=== PATIENT | male | born 1950 | race Caucasian/White ===

== ENCOUNTER 2019-08-18 08:05 | Inpatient (IN) ==
[2019-08-18] MEDS ORDERED: HYDROmorphone INJ 0.5 MG/0.5 ML SYR IV STA (08:35)
--- NOTE | 2019-08-18 08:44 | Emergency Department Note ---
ED Visit Note This patient was seen in concert with Dr. Neal. We discussed and agreed upon the history, physical, assessment and plan. . Resident Activity Tracking Resident Involvement: Resident Care Provided Care Provided: Adult ED
[2019-08-18 09:12] LABS: Mean Corpuscular Hgb Conc 34.2 g/dL (32-36); Mean Corpuscular Volume 90.7 fL (80-100); Mean Platelet Volume 8.9 fL (7.4-10.4); Platelet Count 223 K/uL (130-400); RDW Coefficient of Variation 12.8 % (11.5-14.5); RDW Standard Deviation 42.7 fL (36.4-46.3); Red Blood Count 4.19 M/uL (4.7-6.1); White Blood Count 7.12 K/uL (4.8-10.8)
[2019-08-18 09:34] LABS: Basophils # (auto) 0.02 K/uL (0-0.2); Basophils % (auto) 0.3 %; Eosinophils # (auto) 0.03 K/uL (0-0.5); Eosinophils % (auto) 0.4 %; Immature Granulocytes # (auto) 0.21 K/uL (0.00-0.02); Immature Granulocytes % (auto) 2.9 %; Lymphocytes # (auto) 0.99 K/uL (1.2-3.4); Lymphocytes % (auto) 13.9 %; Monocytes # (auto) 0.94 K/uL (0.11-0.59); Monocytes % (auto) 13.2 %; Neutrophils # (auto) 4.93 K/uL (1.4-6.5); Neutrophils % (auto) 69.3 %; Toxic Granulation 3+
[2019-08-18 09:36] LABS: Albumin Level 2.8 gm/dl (3.4-5.0); BUN Creatinine Ratio 20.3 (10-20); Creatinine Clr Calc Pharmacy 89.1 ml/min; Est GFR (African American) 102.1; Est GFR (Non-African American) 88.1
[2019-08-18 09:38] LABS: Albumin Globulin Ratio 0.7 (0.9-2); Bilirubin,Total 0.5 mg/dl (0.2-1); Globulin 3.9 gm/dl (2.5-4.0); Total Protein 6.7 gm/dl (6.4-8.2)
[2019-08-18] MEDS ORDERED: IOVERSOL 100ml IV PRN (10:06)
--- NOTE | 2019-08-18 10:16 | CT Scan Report ---
CT abd pelvis IV con only CLINICAL HISTORY: abdominal pain COMPARISON STUDY: None. TECHNIQUE: The patient was scanned in a dynamic helical fashion during intravenous administration of 93 cc of Optiray 320. A dose lowering technique was utilized adhering to the principles of ALARA. CT DOSE: 1051.63 mGycm FINDINGS: Lower chest: There is respiratory motion artifact. There are mild dependent atelectatic changes. Liver: There is a 15 mm left lobe hepatic hypodensity, likely representing a cyst. There is trace per ihepatic fluid. Gallbladder: There is a calcified gallstone. The gallbladder is distended with equivocal increased myron jace pressure. Clinical correlation regards to acute cholecystitis is recommended. Spleen: Normal in size and attenuation. Pancreas: Unremarkable. Adrenal glands: Unremarkable. Kidneys: There is a 23 mm left renal cortical cyst. There is no hydronephrosis. Bowel: There are no transition zones indicate bowel obstruction. The appendix appears normal. There i s no evidence of acute diverticulitis. Borderline colonic wall thickening the transverse colon likely represents a nondistended segment Peritoneum: There is trace fluid within the abdomen. Vasculature: The abdominal aorta is normal in course and caliber. Adenopathy: None. Pelvic viscera: The bladder, and pelvic viscera are unremarkable. Skeletal structures: No destructive osseous lesions are seen. IMPRESSION: 1. No evidence of bowel obstruction. No evidence of free air. 2. Cholelithiasis with trace pericholecystic fluid and equivocal increased gallbladder luminal pressu re. Clinical correlation in regards to acute cholecystitis is recommended. If deemed clinically appro priate, a nuclear medicine hepatic biliary study could be obtained in follow-up 3. Trace perihepatic fluid 4. Normal appendix. No evidence of acute diverticulitis. ACT 112: Negative or not required by law. Electronically signed by: Ambrosio Mckinney M.D. 08/18/2019 10:15 AM
[2019-08-18] MEDS ORDERED: cefTRIAXone SODIUM 2,000 MG/70 ML BAG IV STA (10:20)
[2019-08-18 10:43] LABS: Appearance Urine Clear (Clear); Bilirubin Urine Negative (Negative); Blood Urine Negative (Negative); Color Urine Yellow; Glucose Urine UA Negative (Negative); Ketones Urine Negative (Negative); Leukocyte Esterase Urine Negative (Negative); Nitrite Urine Negative (Negative); Protein Urine Negative (Negative); Specific Gravity Urine 1.035 (1.000-1.030); Urobilinogen Urine Negative (Negative)
--- NOTE | 2019-08-18 11:08 | History & Physical Report ---
Date of Service August 18, 2019 Assessment & Plan (1) Cholelithiasis: rule out Cholecystitis -This is a 69 year old male with right upper quadrant abdominal pain that started around 11PM on 08/17/2019. He reported a dinner meal of tacos. Patient denies vomiting or changes in bowel movements or fevers. He has history of myocardial infraction in 2014 and has been on dual antiplatelets or aspirin daily and plavix daily since that time. He denies chest pain or shortness of breath, no dizziness or lightheadedness. On ED presentation on 08/18/2019, his CT abdomen imaging "Cholelithiasis with trace pericholecystic fluid and equivocal increased gallbladder luminal pressure. Clinical correlation in regards to acute cholecystitis is recommended. If deemed clinically appropriate, a nuclear medicine hepatic biliary study could be obtained in follow-up" -ED provider reports that they discussed with general surgery who agreed with radiology impression to get HIDA scan in case of acute cholecystitis . patient started on ceftriaxone 2000 grams empirically by ED provider in case of acute cholecystitis -Family history of mother with gallbladder removed and father with diabetes -keep NPO for now, give prn pain medications and prn antimetics -get blood cultures and follow up HIDA scan History of myocardial infarction in the past -He has history of myocardial infraction in 2014 and has been on dual antiplatelets or aspirin daily and plavix daily since that time -he took morning medications prior to arriving to ED, hold the aspirin and plavix and statin and furosemide and lisinopril for now -continue home dose metoprolol GERD (gastroespohageal reflux disease) -continue home dose pantoprazole DVT prophylaxis: SCDs for now Full Code Status [id number] History of Present Illness -This is a 69 year old male with right upper quadrant abdominal pain that started around 11PM on 08/17/2019. He reported a dinner meal of tacos. Patient denies vomiting or changes in bowel movements or fevers. He has history of myocardial infraction in 2014 and has been on dual antiplatelets or aspirin daily and plavix daily since that time. He denies chest pain or shortness of breath, no dizziness or lightheadedness. On ED presentation on 08/18/2019, his CT abdomen imaging "Cholelithiasis with trace pericholecystic fluid and equivocal increased gallbladder luminal pressure. Clinical correlation in regards to acute cholecystitis is recommended. If deemed clinically appropriate, a nuclear medicine hepatic biliary study could be obtained in follow-up" -ED provider reports that they discussed with general surgery who agreed with radiology impression to get HIDA scan in case of acute cholecystitis . patient started on ceftriaxone 2000 grams empirically by ED provider in case of acute cholecystitis -Family history of mother with gallbladder removed and father with diabetes -Patient denies any known allergies to foods or medications Primary Care Provider: Desean Leyva MD Allergies Allergy/AdvReac Type Severity Reaction Status Date / Time No Known Allergies Allergy Unverified 07/15/19 13:47 Home Medications Home Medications Medication Instructions Recorded Confirmed Type atorvastatin 80 mg tablet 80 mg PO DAILY #30 tab 10/05/18 08/18/19 History pantoprazole 40 mg tablet,delayed 40 mg PO DAILY #90 tab 10/05/18 08/18/19 History release nitroglycerin 0.4 mg sublingual 0.4 mg SL Q5M PRN #25 tab 11/09/18 08/18/19 Rx tablet clopidogrel 75 mg tablet 75 mg PO DAILY #90 tab 01/01/19 08/18/19 Rx furosemide 20 mg tablet 20 mg PO DAILY #90 tab 01/27/19 08/18/19 Rx lisinopril 10 mg tablet 10 mg PO DAILY #90 tab 05/14/19 08/18/19 Rx metoprolol succinate 50 mg 50 mg PO DAILY #30 tab 05/14/19 08/18/19 Rx tablet,extended release 24 hr aspirin [Aspirin Low Dose] 81 mg PO DAILY 08/18/19 08/18/19 History Past Med/Surg History Medical History (Updated 08/18/19 @ 11:13 by Manolo Newman MD) Atrial fibrillation AV block, 3rd degree CAD (coronary artery disease) Cholelithiasis Dyslipidemia Heart failure Hepatic steatosis Hypertension Hyponatremia Inferior myocardial infarction Ischemic cardiomyopathy Other secondary thrombocytopenia Pericarditis Presence of drug-eluting stent in right coronary artery Shock liver Social History marital status: Current Living Situation: Spouse current occupational status: retired Feels Safe at Home: Yes Smoking Status: Never smoker Review of Systems Review of Systems: All systems reviewed & are unremarkable except as noted in HPI & below Physical Exam Constitutional: + obese Eyes: PERRL, conjunctivae normal, anicteric sclerae EOM intact bilaterally ENMT: external ear and nose normal, oropharynx normal Neck: trachea midline, no thyromegaly normal visual inspection Respiratory: normal respiratory effort, lungs clear to auscultation Cardiovascular: Rate/Rhythm: regular rate Gastrointestinal (Abdomen): belly with some tenderness on palpation of right upper quadrant Musculoskeletal: Head/Neck/Chest: normocephalic and head atraumatic Neurologic: PERRL, EOMI, accommodation nl, no face palsy, no dysarthria CN's II-XI intact bilaterally Psychiatric: A+Ox3, euthymic affect Results & Data Results & Data ([facility]) Vital Signs (Past 12 Hours) Vital Signs Temp Pulse Resp BP Pulse Ox 08/18/19 10:31 86 20 157/87 H 99 08/18/19 09:31 78 21 96 08/18/19 09:30 77 19 141/87 H 95 08/18/19 09:04 37.0 C 08/18/19 09:01 92 H 12 94 08/18/19 09:00 87 12 139/85 94 08/18/19 08:57 86 17 145/83 H 96 08/18/19 08:56 96 08/18/19 08:55 89 16 08/18/19 08:06 87 16 163/86 H 97
[2019-08-18] MEDS ORDERED: ACETAMINOPHEN 325 MG TAB PO PRN (11:22)
[2019-08-18] MEDS ORDERED: OXYCODONE HCL IR 5 MG TAB (IMMEDIATE RELEASE) PO PRN (11:22)
[2019-08-18] MEDS ORDERED: ONDANSETRON INJ 2 MG/ML 2 ML VIAL IV PRN (11:22)
[2019-08-18] MEDS ORDERED: HYDROmorphone INJ 0.5 MG/0.5 ML SYR IV PRN (11:22)
--- NOTE | 2019-08-18 15:28 | Surgery Consultation ---
Date of Consultation August 18, 2019 Assessment & Plan (1) Cholelithiasis: 69 year-old male with history of CAD with myocardial infarction in 2014 with 2 stent placed on aspirin and plavix who presented to ED this morning with complaint of RUQ abdominal pain that began last evening around 11 pm after eating bowl of ice cream. CT scan showing cholelithiasis with mild pericholecystic fluid and intraluminal increased pressure, equivocal for acute cholecystitis. no leukocytosis. t. bili/lfts/lipase wnl. afebrile. Plan: Recommend obtaining HIDA scan to rule out acute cholecystitis/cystic duct obstruction. His last dose of Plavix was this morning. If HIDA scan positive for acute cholecystitis/cystic duct obstruction will likely require cholecystectomy as inpatient. If no obstruction, may be able to wait for outpatient cholecystectomy so that we can hold Plavix for appropriate amount of days to reduce risk of bleeding. Recommend iV Abx in case of acute cholecystitis keep npo await hida results continue medical management Discussed with Dr. Byrne who is to evaluate patient later today. History of Present Illness Reason for Consultation: Gallstones vs acute cholecystitis Requesting Physician: Manolo Newman MD Attending Physician: Manolo Newman MD History of Present Illness 69 year-old male with history of CAD with myocardial infarction in 2014 with 2 stent placed on aspirin and plavix who presented to ED this morning with complaint of RUQ abdominal pain that began last evening around 11 pm after eating bowl of ice cream. Had taco for dinner without any pain. Denies of any fever, chills, nausea, vomiting, current diarrhea, blood in stools, or black /tarry stools, difficulty urinating or burning on urination. Pain located in RUQ , described it as dull aching pain. Never had this type of pain before. Pain persisted throughout night without relieve. Not similar to chest pain during his [place]. Takes daily Protonix but denies of significant heartburn/reflux with this onset of pain. No prior abdominal surgeries. Last took plavix this am. Never had outpatient work-up for gallbladder issues. Er work-up included labs which showed no leukocytosis, t.bili and lfts essential wnl. lipase wnl. CT scan of abdomen and pelvis with IV contrast only showed distended gallbladder with calcified stone and mild pericholecystic fluid with equivocal interluminal increased pressure. Bhanu states his pain was improved after pain medication in ED but is slowly increasing as time is going on with most of his pain in the right upper abdomen. Allergies Allergy/AdvReac Type Severity Reaction Status Date / Time No Known Allergies Allergy Unverified 07/15/19 13:47 Home Medications Home Medications Medication Instructions Recorded Confirmed Type atorvastatin 80 mg tablet 80 mg PO DAILY #30 tab 10/05/18 08/18/19 History pantoprazole 40 mg tablet,delayed 40 mg PO DAILY #90 tab 10/05/18 08/18/19 History release nitroglycerin 0.4 mg sublingual 0.4 mg SL Q5M PRN #25 tab 11/09/18 08/18/19 Rx tablet clopidogrel 75 mg tablet 75 mg PO DAILY #90 tab 01/01/19 08/18/19 Rx furosemide 20 mg tablet 20 mg PO DAILY #90 tab 01/27/19 08/18/19 Rx lisinopril 10 mg tablet 10 mg PO DAILY #90 tab 05/14/19 08/18/19 Rx metoprolol succinate 50 mg 50 mg PO DAILY #30 tab 05/14/19 08/18/19 Rx tablet,extended release 24 hr aspirin [Aspirin Low Dose] 81 mg PO DAILY 08/18/19 08/18/19 History Patient History Medical History Atrial fibrillation AV block, 3rd degree CAD (coronary artery disease) Cholelithiasis Dyslipidemia Heart failure Hepatic steatosis Hypertension Hyponatremia Inferior myocardial infarction Ischemic cardiomyopathy Other secondary thrombocytopenia Pericarditis Presence of drug-eluting stent in right coronary artery Shock liver Family History Father Stroke Mother Stroke Sister Congenital heart disease Social History Preferred Language: Malay Communication Ability: Effective 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 Beliefs That Will Affect Care: None marital status: Current Living Situation: Spouse current occupational status: retired Other Information That Helps Us Care for You: No Feels Safe at Home: Yes Safety Concerns: Feels Safe At This Time Smoking Status: Never smoker Hx Alcohol Use: No Hx Substance Use: No Review of Systems Review of Systems: All systems reviewed & are unremarkable except as noted in HPI & below Physical Exam Constitutional: WD/WN, vitals as above no acute distress and not ill appearing Respiratory: normal respiratory effort, lungs clear to auscultation Cardiovascular: RRR, no murmur, no edema Gastrointestinal (Abdomen): Inspection/Auscultation: abdomen normal to inspection and normal bowel sounds; abdomen not distended Percussion/Palpation: + abdomen tender (RUQ, positive Watson's sign), + guarding (deep palpation of RUQ) and abdomen soft; abdomen not rigid Skin: no rashes, warm and dry no jaundice Psychiatric: A+Ox3, euthymic affect Results & Data Vital Signs (Past 12 Hours) Vital Signs Temp Pulse Pulse Resp BP BP Pulse Ox 08/18/19 15:11 37.4 C 85 16 135/73 92 08/18/19 13:07 36.8 C 93 H 18 156/85 H 96 08/18/19 12:46 90 16 149/88 H 08/18/19 12:44 91 H 29 H 149/88 H 08/18/19 11:30 73 20 156/91 H 98 08/18/19 11:00 87 23 146/84 H 99 08/18/19 10:31 86 20 157/87 H 99 08/18/19 09:31 78 21 96 08/18/19 09:30 77 19 141/87 H 95 08/18/19 09:04 37.0 C 08/18/19 09:01 92 H 12 94 08/18/19 09:00 87 12 139/85 94 08/18/19 08:57 86 17 145/83 H 96 08/18/19 08:56 96 08/18/19 08:55 89 16 08/18/19 08:06 87 16 163/86 H 97 Laboratory Results 08/18/19 08/18/19 08/18/19 Range/Units 10:36 08:56 08:56 WBC (4.8-10.8) K/uL RBC (4.7-6.1) M/uL Hgb (14.0-18.0) g/dL Hct (42-52) % MCV (80-100) fL MCH (25-34) pg MCHC (32-36) g/dL RDW Std Deviation (36.4-46.3) fL RDW Coeff of Kemi (11.5-14.5) % Plt Count (130-400) K/uL MPV (7.4-10.4) fL Immature Gran % (Auto) % Neut % (Auto) % Lymph % (Auto) % [place] % (Auto) % Eos % (Auto) % Baso % (Auto) % Neut # (Auto) (1.4-6.5) K/uL Lymph # (Auto) (1.2-3.4) K/uL [place] # (Auto) (0.11-0.59) K/uL Eos # (Auto) (0-0.5) K/uL Baso # (Auto) (0-0.2) K/uL Immature Gran # (Auto) (0.00-0.02) K/uL Toxic Granulation Sodium 133 L (136-145) mmol/L Potassium 4.0 (3.5-5.1) mmol/L Chloride 102 (98-107) mmol/L Carbon Dioxide 26 (21-32) mmol/L Anion Gap 5.0 (3-11) BUN 18 (7-18) mg/dl Creatinine 0.87 (0.6-1.4) mg/dl Est Cr Clr Drug Dosing 89.1 ml/min Est GFR ( Amer) 102.1 Est GFR (Non-Af Amer) 88.1 BUN/Creatinine Ratio 20.3 H (10-20) Glucose 150 H (70-99) mg/dl Calcium 9.0 (8.5-10.1) mg/dl Total Bilirubin 0.5 (0.2-1) mg/dl AST 43 H (15-37) U/L ALT 61 (12-78) U/L Alkaline Phosphatase 115 (45-117) U/L Total Protein 6.7 (6.4-8.2) gm/dl Albumin 2.8 L (3.4-5.0) gm/dl Globulin 3.9 (2.5-4.0) gm/dl Albumin/Globulin Ratio 0.7 L (0.9-2) Lipase 216 (73-393) U/L Procalcitonin 0.09 (0-0.5) ng/ml Urine Color Yellow Urine Appearance Clear (Clear) Urine pH 5.0 (4.5-7.5) Ur Specific [place] 1.035 H (1.000-1.030) Urine Protein Negative (Negative) Urine Glucose (UA) Negative (Negative) Urine Ketones Negative (Negative) Urine Blood Negative (Negative) Urine Nitrite Negative (Negative) Urine Bilirubin Negative (Negative) Urine Urobilinogen Negative (Negative) Ur Leukocyte Esterase Negative (Negative) 08/18/19 Range/Units 08:56 WBC 7.12 (4.8-10.8) K/uL RBC 4.19 L (4.7-6.1) M/uL Hgb 13.0 L (14.0-18.0) g/dL Hct 38.0 L (42-52) % MCV 90.7 (80-100) fL MCH 31.0 (25-34) pg MCHC 34.2 (32-36) g/dL RDW Std Deviation 42.7 (36.4-46.3) fL RDW Coeff of Kemi 12.8 (11.5-14.5) % Plt Count 223 (130-400) K/uL MPV 8.9 (7.4-10.4) fL Immature Gran % (Auto) 2.9 % Neut % (Auto) 69.3 % Lymph % (Auto) 13.9 % [place] % (Auto) 13.2 % Eos % (Auto) 0.4 % Baso % (Auto) 0.3 % Neut # (Auto) 4.93 (1.4-6.5) K/uL Lymph # (Auto) 0.99 L (1.2-3.4) K/uL [place] # (Auto) 0.94 H (0.11-0.59) K/uL Eos # (Auto) 0.03 (0-0.5) K/uL Baso # (Auto) 0.02 (0-0.2) K/uL Immature Gran # (Auto) 0.21 H (0.00-0.02) K/uL Toxic Granulation 3+ Sodium (136-145) mmol/L Potassium (3.5-5.1) mmol/L Chloride (98-107) mmol/L Carbon Dioxide (21-32) mmol/L Anion Gap (3-11) BUN (7-18) mg/dl Creatinine (0.6-1.4) mg/dl Est Cr Clr Drug Dosing ml/min Est GFR ( Amer) Est GFR (Non-Af Amer) BUN/Creatinine Ratio (10-20) Glucose (70-99) mg/dl Calcium (8.5-10.1) mg/dl Total Bilirubin (0.2-1) mg/dl AST (15-37) U/L ALT (12-78) U/L Alkaline Phosphatase (45-117) U/L Total Protein (6.4-8.2) gm/dl Albumin (3.4-5.0) gm/dl Globulin (2.5-4.0) gm/dl Albumin/Globulin Ratio (0.9-2) Lipase (73-393) U/L Procalcitonin (0-0.5) ng/ml Urine Color Urine Appearance (Clear) Urine pH (4.5-7.5) Ur Specific [place] (1.000-1.030) Urine Protein (Negative) Urine Glucose (UA) (Negative) Urine Ketones (Negative) Urine Blood (Negative) Urine Nitrite (Negative) Urine Bilirubin (Negative) Urine Urobilinogen (Negative) Ur Leukocyte Esterase (Negative) Diagnostic Findings CT abd pelvis IV con only CLINICAL HISTORY: abdominal pain COMPARISON STUDY: None. TECHNIQUE: The patient was scanned in a dynamic helical fashion during intravenous administration of 93 cc of Optiray 320. A dose lowering technique was utilized adhering to the principles of ALARA. CT DOSE: 1051.63 mGycm FINDINGS: Lower chest: There is respiratory motion artifact. There are mild dependent atelectatic changes. Liver: There is a 15 mm left lobe hepatic hypodensity, likely representing a cyst. There is trace perihepatic fluid. Gallbladder: There is a calcified gallstone. The gallbladder is distended with equivocal increased luminal pressure. Clinical correlation regards to acute cholecystitis is recommended. Spleen: Normal in size and attenuation. Pancreas: Unremarkable. Adrenal glands: Unremarkable. Kidneys: There is a 23 mm left renal cortical cyst. There is no hydronephrosis. Bowel: There are no transition zones indicate bowel obstruction. The appendix appears normal. There is no evidence of acute diverticulitis. Borderline colonic wall thickening the transverse colon likely represents a nondistended segment Peritoneum: There is trace fluid within the abdomen. Vasculature: The abdominal aorta is normal in course and caliber. Adenopathy: None. Pelvic viscera: The bladder, and pelvic viscera are unremarkable. Skeletal structures: No destructive osseous lesions are seen. IMPRESSION: 1. No evidence of bowel obstruction. No evidence of free air. 2. Cholelithiasis with trace pericholecystic fluid and equivocal increased gallbladder luminal pressure. Clinical correlation in regards to acute cholecystitis is recommended. If deemed clinically appropriate, a nuclear medicine hepatic biliary study could be obtained in follow-up 3. Trace perihepatic fluid 4. Normal appendix. No evidence of acute diverticulitis.
--- NOTE | 2019-08-18 16:38 | Emergency Department Note ---
History of Present Illness General Chief complaint: Abdominal Pain Stated complaint: ABD PAIN/DISCOMFORT Time Seen by Provider: 08/18/19 08:11 Source: patient and RN notes reviewed Mode of arrival: ambulatory Limitations: no limitations History of Present Illness Provider complaint: Epigastric abdominal pain Maximum Pain Intensity: 5 This patient is a 69-year-old male who presents emergency department with 1 weeks worth of epigastric abdominal pain. Patient has a history of HI but states this feels much differently. He has felt feverish over the last several days, he has been nauseated but denies vomiting. Patient did have some diarrhea earlier in the week. Patient denies any blood in his stools. He denies any coughing or shortness of breath. Home Medications Home Medications Medication Instructions Recorded Confirmed Type atorvastatin 80 mg tablet 80 mg PO DAILY #30 tab 10/05/18 08/18/19 History pantoprazole 40 mg tablet,delayed 40 mg PO DAILY #90 tab 10/05/18 08/18/19 History release nitroglycerin 0.4 mg sublingual 0.4 mg SL Q5M PRN #25 tab 11/09/18 08/18/19 Rx tablet clopidogrel 75 mg tablet 75 mg PO DAILY #90 tab 01/01/19 08/18/19 Rx furosemide 20 mg tablet 20 mg PO DAILY #90 tab 01/27/19 08/18/19 Rx lisinopril 10 mg tablet 10 mg PO DAILY #90 tab 05/14/19 08/18/19 Rx metoprolol succinate 50 mg 50 mg PO DAILY #30 tab 05/14/19 08/18/19 Rx tablet,extended release 24 hr aspirin [Aspirin Low Dose] 81 mg PO DAILY 08/18/19 08/18/19 History Allergies Allergy/AdvReac Type Severity Reaction Status Date / Time No Known Allergies Allergy Unverified 07/15/19 13:47 Past Med/Surg History Medical History Atrial fibrillation AV block, 3rd degree CAD (coronary artery disease) Cholelithiasis Dyslipidemia Heart failure Hepatic steatosis Hypertension Hyponatremia Inferior myocardial infarction Ischemic cardiomyopathy Other secondary thrombocytopenia Pericarditis Presence of drug-eluting stent in right coronary artery Shock liver Family History Father Stroke Mother Stroke Sister Congenital heart disease Social History Preferred Language: Icelandic Communication Ability: Effective Complaint Investigations Officer Required: No Beliefs That Will Affect Care: None marital status: Current Living Situation: Spouse current occupational status: retired Other Information That Helps Us Care for You: No Feels Safe at Home: Yes Safety Concerns: Feels Safe At This Time Smoking Status: Never smoker Hx Alcohol Use: No Hx Substance Use: No Review of Systems See HPI for pertinent positives & negatives. and A total of 10 systems reviewed and were otherwise negative Physical Exam Vital Signs Vital Signs - 24 hr 08/18/19 08:06 08/18/19 08:55 08/18/19 08:56 Temperature Temperature Source Pulse Rate 87 89 Pulse Rate from SpO2 Sensor Respiratory Rate 16 16 Blood Pressure 163/86 H Blood Pressure Mean 111 Pulse Oximetry 97 96 Oxygen Delivery Method Room Air Room Air Sepsis Recent Fever Within 48 Hours No Sepsis New/Unexplained Change in Mental Status No Sepsis Action Taken by Nursing No Action Required 08/18/19 08:57 08/18/19 09:00 08/18/19 09:01 Temperature Temperature Source Pulse Rate 86 87 92 H Pulse Rate from SpO2 Sensor 85 82 90 Respiratory Rate 17 12 12 Blood Pressure 145/83 H 139/85 Blood Pressure Mean 102 101 Pulse Oximetry 96 94 94 Oxygen Delivery Method Room Air Room Air Room Air Sepsis Recent Fever Within 48 Hours Sepsis New/Unexplained Change in Mental Status Sepsis Action Taken by Nursing 08/18/19 09:04 08/18/19 09:30 08/18/19 09:31 Temperature 37.0 C Temperature Source Oral Pulse Rate 77 78 Pulse Rate from SpO2 Sensor 78 81 Respiratory Rate 19 21 Blood Pressure 141/87 H Blood Pressure Mean 97 Pulse Oximetry 95 96 Oxygen Delivery Method Room Air Room Air Sepsis Recent Fever Within 48 Hours Sepsis New/Unexplained Change in Mental Status Sepsis Action Taken by Nursing 08/18/19 10:31 08/18/19 11:00 Temperature Temperature Source Pulse Rate 86 87 Pulse Rate from SpO2 Sensor 84 92 H Respiratory Rate 20 23 Blood Pressure 157/87 H 146/84 H Blood Pressure Mean 99 102 Pulse Oximetry 99 99 Oxygen Delivery Method Room Air Sepsis Recent Fever Within 48 Hours Sepsis New/Unexplained Change in Mental Status Sepsis Action Taken by Nursing Vital signs reviewed. General: Well-appearing 69-year-old male, in no significant distress. HEENT: No scleral icterus, PERRLA, neck supple. Atraumatic. Cardiovascular: Regular rate and rhythm, no extra sounds. Pulmonary: Clear to auscultation bilaterally, normal work of breathing. Abdomen: Soft, mild tenderness to palpation of the right upper quadrant and epigastric region, nondistended, positive bowel sounds. Musculoskeletal: Atraumatic, no peripheral edema. Neurologic: Patient awake alert and oriented x 3 Skin: Warm, dry, no rash Course Administered Medications Hydromorphone HCl (Dilaudid) 0.5 mg IV Q6H PRN PRN Reason: Severe Pain Stop: 09/01/19 11:21 Last Admin: 08/18/19 16:18 Dose: 0.5 mg Documented by: [id number] Ceftriaxone Sodium 2,000 mg/ (Dextrose) 70 mls @ 100 mls/hr IV DAILY TOM; Protocol Stop: 08/29/19 08:59 Last Infusion: 08/19/19 10:40 Dose: 0 mls/hr Documented by: [id number] Admin: 08/19/19 09:58 Dose: 100 mls/hr Documented by: [id number] Ioversol (Optiray 320 100ml) 93 ml IV ONCE PRN PRN Reason: Interaction Checking Stop: 08/22/19 10:05 Last Admin: 08/18/19 10:07 Dose: 93 ml Documented by: [id number] Metoprolol Succinate (Toprol Xl) 50 mg PO DAILY TOM Stop: 09/18/19 08:59 Last Admin: 08/19/19 08:54 Dose: Not Given Documented by: [id number] Pantoprazole Sodium (Protonix) 40 mg PO DAILY TOM Stop: 09/18/19 08:59 Last Admin: 08/19/19 08:54 Dose: Not Given Documented by: [id number] Discontinued Medications Hydromorphone HCl (Dilaudid) 0.5 mg IV NOW STA Stop: 08/18/19 08:36 Last Admin: 08/18/19 09:01 Dose: 0.5 mg Documented by: [id number] Ceftriaxone Sodium (Rocephin) 2,000 mg in 70 mls @ 140 mls/hr IV NOW STA Stop: 08/18/19 10:49 Last Infusion: 08/18/19 11:15 Dose: 0 mls/hr Documented by: [id number] Admin: 08/18/19 10:33 Dose: 140 mls/hr Documented by: [id number] Sincalide 1.88 mcg/ Sodium (Chloride) 101.88 mls @ 200 mls/hr IV NOW STA Stop: 08/19/19 09:00 Last Admin: 08/19/19 09:58 Dose: Not Given Documented by: [id number] Morphine Sulfate (Morphine Sulfate) Confirm Administered Dose 2 mg .ROUTE .STK- MED ONE Stop: 08/19/19 09:11 Last Admin: 08/19/19 09:16 Dose: 2 mg Documented by: [id number] Morphine Sulfate (Morphine Sulfate) 2 mg IV NOW STA Stop: 08/19/19 09:21 Last Admin: 08/19/19 09:21 Dose: Not Given Documented by: [id number] Medical Decision Making Differential Diagnosis Differential diagnosis: Etiologies such as biliary colic, cholecystitis, hepatitis, pancreatitis, cardiac disease, pancreatitis, gastritis, peptic ulcer disease, appendicitis, cystitis, diverticulitis, mesenteric ischemia, inflammatory bowel disease, ileus, bowel obstruction, testicular torsion, aortic pathology, shingles, as well as others were considered. Medical Records Attestation: I reviewed the patient's medical records. Home Medications Current Medication List: was personally reviewed by me Laboratory Data Attestation: I reviewed the patient's lab results. Result diagrams: 08/19/19 05:14 08/19/19 05:14 Lab Results 08/18/19 08/18/19 08/18/19 Range/Units 08:56 08:56 08:56 WBC 7.12 (4.8-10.8) K/uL RBC 4.19 L (4.7-6.1) M/uL Hgb 13.0 L (14.0-18.0) g/dL Hct 38.0 L (42-52) % MCV 90.7 (80-100) fL MCH 31.0 (25-34) pg MCHC 34.2 (32-36) g/dL RDW Std Deviation 42.7 (36.4-46.3) fL RDW Coeff of Kemi 12.8 (11.5-14.5) % Plt Count 223 (130-400) K/uL MPV 8.9 (7.4-10.4) fL Immature Gran % (Auto) 2.9 % Neut % (Auto) 69.3 % Lymph % (Auto) 13.9 % Bates % (Auto) 13.2 % Eos % (Auto) 0.4 % Baso % (Auto) 0.3 % Neut # (Auto) 4.93 (1.4-6.5) K/uL Lymph # (Auto) 0.99 L (1.2-3.4) K/uL Bates # (Auto) 0.94 H (0.11-0.59) K/uL Eos # (Auto) 0.03 (0-0.5) K/uL Baso # (Auto) 0.02 (0-0.2) K/uL Immature Gran # (Auto) 0.21 H (0.00-0.02) K/uL Toxic Granulation 3+ Sodium 133 L (136-145) mmol/L Potassium 4.0 (3.5-5.1) mmol/L Chloride 102 (98-107) mmol/L Carbon Dioxide 26 (21-32) mmol/L Anion Gap 5.0 (3-11) BUN 18 (7-18) mg/dl Creatinine 0.87 (0.6-1.4) mg/dl Est Cr Clr Drug Dosing 89.1 ml/min Est GFR ( Amer) 102.1 Est GFR (Non-Af Amer) 88.1 BUN/Creatinine Ratio 20.3 H (10-20) Glucose 150 H (70-99) mg/dl Calcium 9.0 (8.5-10.1) mg/dl Total Bilirubin 0.5 (0.2-1) mg/dl AST 43 H (15-37) U/L ALT 61 (12-78) U/L Alkaline Phosphatase 115 (45-117) U/L Total Protein 6.7 (6.4-8.2) gm/dl Albumin 2.8 L (3.4-5.0) gm/dl Globulin 3.9 (2.5-4.0) gm/dl Albumin/Globulin Ratio 0.7 L (0.9-2) Lipase 216 (73-393) U/L Procalcitonin 0.09 (0-0.5) ng/ml Urine Color Urine Appearance (Clear) Urine pH (4.5-7.5) Ur Specific [place] (1.000-1.030) Urine Protein (Negative) Urine Glucose (UA) (Negative) Urine Ketones (Negative) Urine Blood (Negative) Urine Nitrite (Negative) Urine Bilirubin (Negative) Urine Urobilinogen (Negative) Ur Leukocyte Esterase (Negative) 08/18/19 Range/Units 10:36 WBC (4.8-10.8) K/uL RBC (4.7-6.1) M/uL Hgb (14.0-18.0) g/dL Hct (42-52) % MCV (80-100) fL MCH (25-34) pg MCHC (32-36) g/dL RDW Std Deviation (36.4-46.3) fL RDW Coeff of Kemi (11.5-14.5) % Plt Count (130-400) K/uL MPV (7.4-10.4) fL Immature Gran % (Auto) % Neut % (Auto) % Lymph % (Auto) % Bates % (Auto) % Eos % (Auto) % Baso % (Auto) % Neut # (Auto) (1.4-6.5) K/uL Lymph # (Auto) (1.2-3.4) K/uL Bates # (Auto) (0.11-0.59) K/uL Eos # (Auto) (0-0.5) K/uL Baso # (Auto) (0-0.2) K/uL Immature Gran # (Auto) (0.00-0.02) K/uL Toxic Granulation Sodium (136-145) mmol/L Potassium (3.5-5.1) mmol/L Chloride (98-107) mmol/L Carbon Dioxide (21-32) mmol/L Anion Gap (3-11) BUN (7-18) mg/dl Creatinine (0.6-1.4) mg/dl Est Cr Clr Drug Dosing ml/min Est GFR ( Amer) Est GFR (Non-Af Amer) BUN/Creatinine Ratio (10-20) Glucose (70-99) mg/dl Calcium (8.5-10.1) mg/dl Total Bilirubin (0.2-1) mg/dl AST (15-37) U/L ALT (12-78) U/L Alkaline Phosphatase (45-117) U/L Total Protein (6.4-8.2) gm/dl Albumin (3.4-5.0) gm/dl Globulin (2.5-4.0) gm/dl Albumin/Globulin Ratio (0.9-2) Lipase (73-393) U/L Procalcitonin (0-0.5) ng/ml Urine Color Yellow Urine Appearance Clear (Clear) Urine pH 5.0 (4.5-7.5) Ur Specific [place] 1.035 H (1.000-1.030) Urine Protein Negative (Negative) Urine Glucose (UA) Negative (Negative) Urine Ketones Negative (Negative) Urine Blood Negative (Negative) Urine Nitrite Negative (Negative) Urine Bilirubin Negative (Negative) Urine Urobilinogen Negative (Negative) Ur Leukocyte Esterase Negative (Negative) Imaging Data Radiologist's Impression: CT abd pelvis IV con only CLINICAL HISTORY: abdominal pain COMPARISON STUDY: None. TECHNIQUE: The patient was scanned in a dynamic helical fashion during intravenous administration of 93 cc of Optiray 320. A dose lowering technique was utilized adhering to the principles of ALARA. CT DOSE: 1051.63 mGycm FINDINGS: Lower chest: There is respiratory motion artifact. There are mild dependent atelectatic changes. Liver: There is a 15 mm left lobe hepatic hypodensity, likely representing a cyst. There is trace perihepatic fluid. Gallbladder: There is a calcified gallstone. The gallbladder is distended with equivocal increased luminal pressure. Clinical correlation regards to acute cholecystitis is recommended. Spleen: Normal in size and attenuation. Pancreas: Unremarkable. Adrenal glands: Unremarkable. Kidneys: There is a 23 mm left renal cortical cyst. There is no hydronephrosis. Bowel: There are no transition zones indicate bowel obstruction. The appendix appears normal. There is no evidence of acute diverticulitis. Borderline colonic wall thickening the transverse colon likely represents a nondistended segment Peritoneum: There is trace fluid within the abdomen. Vasculature: The abdominal aorta is normal in course and caliber. Adenopathy: None. Pelvic viscera: The bladder, and pelvic viscera are unremarkable. Skeletal structures: No destructive osseous lesions are seen. IMPRESSION: 1. No evidence of bowel obstruction. No evidence of free air. 2. Cholelithiasis with trace pericholecystic fluid and equivocal increased gallbladder luminal pressure. Clinical correlation in regards to acute cholecystitis is recommended. If deemed clinically appropriate, a nuclear medicine hepatic biliary study could be obtained in follow-up 3. Trace perihepatic fluid 4. Normal appendix. No evidence of acute diverticulitis. ACT 112: Negative or not required by law. Electronically signed by: Ambrosio Mckinney M.D. 08/18/2019 10:15 AM Dictated: 08/18/19 1009 Transcribed: 08/18/19 1009 ECG Data Attestation: I personally reviewed and interpreted this ECG as follows: Indication: + abdominal pain Rate (beats per minute): 78 Rhythm: + atrial fibrillation ECG Intervals/blocks: + Normal QT-c ECG ST segments: + Nonspecific ST abnormalities ECG Findings: + Q waves (Inferior); no PACs and no PVCs Blood Pressure Blood Pressure Findings: Normal blood pressure Blood Pressure Disposition: did not require urgent referral MDM Narrative This patient was evaluated and appeared to be in no significant distress. IV access was obtained and laboratory work was drawn. Patient was medicated with IV Dilaudid and Zofran. IV hydration was initiated. An order for cardiac monitoring was placed and the patient was found to be in a rate controlled atrial fibrillation. Patient is noted not to be anticoagulated. This may be a new finding. CT scan of the abdomen pelvis was ordered and reveals evidence of pericholecystic fluid there is concern for acute cholecystitis. Patient is noted to have a normal WBC and liver enzymes. Patient was given 2 g of IV Rocephin. Case was discussed with general surgery who has requested medical admission and HIDA scan. Patient was made aware of the plan[facility] will evaluate the patient for further management. Impression & Plan Cholecystitis Discharge Plan Visit Data *Final* Discharge Date/Time: 08/18/19 12:46 Chief Complaint: Abdominal Pain Stated Complaint: ABD PAIN/DISCOMFORT ED Provider: Paulina Neal ED Midlevel Provider: Sherrie Beaver Discharge Problem: Cholecystitis Patient Disposition: Admitted As Inpatient Discharge Instructions Interventions: ED Discharge Assessment Last Done: 08/18/19 12:46
[2019-08-19 05:44] LABS: Hematocrit (blood only) 37.3 % (42-52); Hemoglobin 12.8 g/dL (14.0-18.0); Mean Corpuscular Hemoglobin 31.2 pg (25-34); Mean Corpuscular Hgb Conc 34.3 g/dL (32-36); Mean Platelet Volume 8.6 fL (7.4-10.4); Platelet Count 207 K/uL (130-400); RDW Standard Deviation 43.2 fL (36.4-46.3); White Blood Count 13.34 K/uL (4.8-10.8)
--- NOTE | 2019-08-19 05:52 | Electrocardiogram Report ---
Test Reason : Blood Pressure : / mmHG Vent. Rate : 078 BPM Atrial Rate : 375 BPM P-R Int : 000 ms QRS Dur : 086 ms QT Int : 368 ms P-R-T Axes : 000 -19 137 degrees QTc Int : 419 ms Atrial fibrillation Minimal voltage criteria for LVH, may be normal variant Inferior infarct (cited on or before 07-JAN-2015) Nonspecific T wave abnormality Abnormal ECG When compared with ECG of 15-FEB-2015 07:05, Atrial fibrillation has replaced Sinus rhythm T wave inversion no longer evident in Inferior leads T wave inversion less evident in Anterolateral leads Confirmed by Jeremy Figueroa ([id number]) on 08/19/2019 5:51:44 AM Referred By: ED Confirmed By:Jeremy Figueroa
[2019-08-19 06:16] LABS: Basophils # (auto) 0.02 K/uL (0-0.2); Basophils % (auto) 0.1 %; Eosinophils # (auto) 0.01 K/uL (0-0.5); Eosinophils % (auto) 0.1 %; Immature Granulocytes # (auto) 0.19 K/uL (0.00-0.02); Immature Granulocytes % (auto) 1.4 %; Lymphocytes # (auto) 1.37 K/uL (1.2-3.4); Lymphocytes % (auto) 10.3 %; Neutrophils # (auto) 10.55 K/uL (1.4-6.5); Neutrophils % (auto) 79.1 %; RBC Morphology Unremarkable
[2019-08-19 06:17] LABS: Albumin Level 2.5 gm/dl (3.4-5.0); BUN Creatinine Ratio 11.3 (10-20); Calcium 8.4 mg/dl (8.5-10.1); Creatinine Clr Calc Pharmacy 88.1 ml/min; Est GFR (African American) 101.6; Est GFR (Non-African American) 87.6; Potassium 4.1 mmol/L (3.5-5.1)
[2019-08-19 06:23] LABS: Albumin Globulin Ratio 0.6 (0.9-2); Bilirubin,Total 0.7 mg/dl (0.2-1); Globulin 3.9 gm/dl (2.5-4.0); Total Protein 6.4 gm/dl (6.4-8.2)
[2019-08-19] MEDS ORDERED: SODIUM CHLORIDE 0.9% IV STA (08:30)
[2019-08-19] MEDS ORDERED: SINCALIDE IV STA (08:30)
[2019-08-19] MEDS: PANTOprazole 40 MG TAB PO SCH (08:54)
[2019-08-19] MEDS: METOPROLOL SUCC 50MG EXT REL TAB PO SCH (08:54)
[2019-08-19] MEDS ORDERED: cefTRIAXone SODIUM 2,000 MG in DEXTROSE 5% 50 ML IV SCH (09:00)
[2019-08-19] MEDS ORDERED: MoRPHine SULFATE 2 MG/ML CARP ONE (09:10)
[2019-08-19] MEDS ORDERED: MoRPHine SULFATE 2 MG/ML CARP IV STA (09:20)
--- NOTE | 2019-08-19 10:04 | Nuclear Medicine Report ---
NM hepatobiliary CLINICAL HISTORY: Abdominal pain. Abnormal CT scan. COMPARISON STUDY: CT scan dated 08/18/2019 FINDINGS: Patient was injected with 5.6 mCi of technetium 99m Choletec. Sequential anterior imaging was perform ed. Hepatic excretion appeared unremarkable. There is normal passage of activity into small bowel. At 1 h our, the gallbladder was not visualized. The patient was injected with 2 mg of intravenous morphine. Additional imaging up to 90 minutes was p erformed. The gallbladder was nonvisualized. IMPRESSION: 1. Nonvisualization of the gallbladder. Given the clinical presentation and CT findings, this implies cystic duct obstruction. ACT 112: Negative or not required by law. Electronically signed by: Ambrosio Mckinney M.D. 08/19/2019 10:02 AM
--- NOTE | 2019-08-19 11:06 | Cardiology Consultation ---
Date of Consultation August 19, 2019 Assessment & Plan (1) CAD (coronary artery disease): (2) Dyslipidemia: (3) Ischemic cardiomyopathy: (4) Presence of drug-eluting stent in right coronary artery: (5) Cholelithiasis: Patient is a 69-year-old male with a past medical history significant for coronary artery disease s/p inferior IL 12/2014 with subsequent stenting of distal RCA with a single RICA, atrial fibrillation post IL, mild ischemic cardiomyopathy (EF 45%), and dyslipidemia who is being seen for a preoperative cardiovascular evaluation prior to cholecystectomy. He is currently stable and asymptomatic from a cardiovascular standpoint with no anginal symptoms occurring at >4 METS of activity. He has no evidence of CHF or significant valvular abnormality. EKG shows no acute ischemic changes. Heart rate and blood pressure are adequately controlled. Given this information, the p atient is at an acceptable risk to proceed with surgery from a cardiovascular standpoint. It is recommended he remain on low dose aspirin therapy throughout the perioperative period given his history of intracoronary stenting. He should also remain on his beta scotty therapy. Recommend close monitoring and avoidance of hypotension, hypertension, tachycardia, hypoxia, and significant anemia throughout the perioperative period to reduce myocardial oxygen demand and meet myocardial oxygen delivery. Patient did present in rate controlled atrial fibrillation yesterday, and he has since spontaneously converted to sinus rhythm. He was completely asymptomatic with the atrial fibrillation, and it is unclear how often he is having paroxysms of the arrhythmia. He does have a CHADSVASc score of at least 2, and long-term anticoagulation therapy is therefore indicated for thromboembolic prophylaxis. Recommend utilizing a novel anticoagulant such as Eliquis. This can be initiated following surgery, once safe from a bleeding standpoint. His Plavix therapy can then be discontinued, and he can remain on low dose aspirin therapy. Thank you for allowing us to see this patient in consultation. Patient was discussed with Dr. Figueroa, and the plan was made in collaboration with him. History of Present Illness Reason for Consultation: Preop eval Requesting Physician: Dr. Newman History of Present Illness Mr. Easton is a 69-year-old male with a past medical history significant for coronary artery disease s/p inferior IL 12/2014 with subsequent stenting of distal RCA with a single RICA, atrial fibrillation post IL, mild ischemic cardiomyopathy (EF 45%), and dyslipidemia who is being seen for a preoperative cardiovascular evaluation prior to cholecystectomy. The patient was in his usual state of health until Friday when he developed right upper quadrant abdominal pain after eating a bowl of ice cream. The pain persisted throughout the night, and he decided to come to the Emergency Department Friday for further evaluation. CT scan showed cholelithiasis with mild pericholecystic fluid and intraluminal increased pressure, equivocal for acute cholecystitis. Nuclear medicine hepatobiliary study showed nonvisualization of the gallbladder, implying cystic duct obstruction. Patient will now likely be undergoing a cholecystectomy. The patient reports that he is typically very active. 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 He has stairs in his home which he ambulates up and down several times daily. He denies any chest discomfort, other anginal type symptoms, or limiting dyspnea. He further denies orthopnea, PND, or edema. He denies palpitations, lightheadedness, syncope, or presyncope. He denies abnormal bleeding such as melena, hematochezia, or hematuria. He denies cerebrovascular symptoms. His cardiac history dates back to December 2014 with late presentation of an inferior myocardial infarction. Cardiac catheterization at that time showed total distal RCA occlusion which was stented with a 2.5 x 23 mm Xience RICA. He was also noted to have moderate proximal and early mid LAD stenosis with [id number] collateral flow. Intervention was performed because the patient was continuing to have chest pain. There was a filling defect at the origin of both the PDA and posterior lateral arteries consistent with residual thrombus. There was NHUNG 2 flow into these vessels. Subsequent echocardiogram with inferior hypokinesis and inferoapical akinesis. Post IL he had atrial fibrillation, which spontaneously converted to sinus rhythm. He was on anticoagulation therapy for a period of time but it was discontinued. His EKG on presentation yesterday showed atrial fibrillation with a controlled ventricular response rate of 78 bpm. Repeat EKG today shows normal sinus rhythm. Family history: Noncontributory given his own disease. Social history: He lives on a farm with his . No smoking or alcohol use. Allergies Allergy/AdvReac Type Severity Reaction Status Date / Time No Known Allergies Allergy Unverified 07/15/19 13:47 Home Medications Home Medications Medication Instructions Recorded Confirmed Type atorvastatin 80 mg tablet 80 mg PO DAILY #30 tab 10/05/18 08/18/19 History pantoprazole 40 mg tablet,delayed 40 mg PO DAILY #90 tab 10/05/18 08/18/19 History release nitroglycerin 0.4 mg sublingual 0.4 mg SL Q5M PRN #25 tab 11/09/18 08/18/19 Rx tablet clopidogrel 75 mg tablet 75 mg PO DAILY #90 tab 01/01/19 08/18/19 Rx furosemide 20 mg tablet 20 mg PO DAILY #90 tab 01/27/19 08/18/19 Rx lisinopril 10 mg tablet 10 mg PO DAILY #90 tab 05/14/19 08/18/19 Rx metoprolol succinate 50 mg 50 mg PO DAILY #30 tab 05/14/19 08/18/19 Rx tablet,extended release 24 hr aspirin [Aspirin Low Dose] 81 mg PO DAILY 08/18/19 08/18/19 History Patient History Medical History Atrial fibrillation AV block, 3rd degree CAD (coronary artery disease) Cholelithiasis Dyslipidemia Heart failure Hepatic steatosis Hypertension Hyponatremia Inferior myocardial infarction Ischemic cardiomyopathy Other secondary thrombocytopenia Pericarditis Presence of drug-eluting stent in right coronary artery Shock liver Family History Father Stroke Mother Stroke Sister Congenital heart disease Social History Preferred Language: Vietnamese Communication Ability: Effective Finish Sander Required: No Beliefs That Will Affect Care: None marital status: Current Living Situation: Spouse current occupational status: retired Other Information That Helps Us Care for You: No Feels Safe at Home: Yes Safety Concerns: Feels Safe At This Time Smoking Status: Never smoker Hx Alcohol Use: No Hx Substance Use: No Physical Exam Physical Exam: Constitutional: Alert, oriented, in no acute distress HEENT: Head is atraumatic and normocephalic. EOMs intact. Sclera non-icteric. Face is symmetric. No perioral cyanosis. Mucous membranes moist Neck: Supple, no JVD, no carotid bruits Pulmonary: Normal respiratory effort, clear to auscultation throughout Cardiac: Regular rate and rhythm, normal S1 and S2, no gallops, no rubs, no murmurs Extremities: No edema. No clubbing or cyanosis. Pulses 2+ and symmetric Abdomen: Normal bowel sounds, soft, non-tender, no abdominal masses palpated Skin: Normal skin color, turgor, and pigmentation. No rash or skin lesions Neurological: Oriented to person, place, and time Results & Data ([facility]) Vital Signs (Past 12 Hours) Vital Signs Temp Pulse Resp BP Pulse Ox 08/19/19 07:14 99.1 F 93 H 16 116/68 94 08/18/19 23:16 99.7 F H 94 H 15 115/73 91 Laboratory Results 08/18/19 08/18/19 08/18/19 Range/Units 10:36 08:56 08:56 WBC (4.8-10.8) K/uL RBC (4.7-6.1) M/uL Hgb (14.0-18.0) g/dL Hct (42-52) % MCV (80-100) fL MCH (25-34) pg MCHC (32-36) g/dL RDW Std Deviation (36.4-46.3) fL RDW Coeff of Kemi (11.5-14.5) % Plt Count (130-400) K/uL MPV (7.4-10.4) fL Immature Gran % (Auto) % Neut % (Auto) % Lymph % (Auto) % Kay % (Auto) % Eos % (Auto) % Baso % (Auto) % Neut # (Auto) (1.4-6.5) K/uL Lymph # (Auto) (1.2-3.4) K/uL Kay # (Auto) (0.11-0.59) K/uL Eos # (Auto) (0-0.5) K/uL Baso # (Auto) (0-0.2) K/uL Immature Gran # (Auto) (0.00-0.02) K/uL Toxic Granulation Sodium 133 L (136-145) mmol/L Potassium 4.0 (3.5-5.1) mmol/L Chloride 102 (98-107) mmol/L Carbon Dioxide 26 (21-32) mmol/L Anion Gap 5.0 (3-11) BUN 18 (7-18) mg/dl Creatinine 0.87 (0.6-1.4) mg/dl Est Cr Clr Drug Dosing 89.1 ml/min Est GFR ( Amer) 102.1 Est GFR (Non-Af Amer) 88.1 BUN/Creatinine Ratio 20.3 H (10-20) Glucose 150 H (70-99) mg/dl Calcium 9.0 (8.5-10.1) mg/dl Total Bilirubin 0.5 (0.2-1) mg/dl AST 43 H (15-37) U/L ALT 61 (12-78) U/L Alkaline Phosphatase 115 (45-117) U/L Total Protein 6.7 (6.4-8.2) gm/dl Albumin 2.8 L (3.4-5.0) gm/dl Globulin 3.9 (2.5-4.0) gm/dl Albumin/Globulin Ratio 0.7 L (0.9-2) Lipase 216 (73-393) U/L Procalcitonin 0.09 (0-0.5) ng/ml Urine Color Yellow Urine Appearance Clear (Clear) Urine pH 5.0 (4.5-7.5) Ur Specific [place] 1.035 H (1.000-1.030) Urine Protein Negative (Negative) Urine Glucose (UA) Negative (Negative) Urine Ketones Negative (Negative) Urine Blood Negative (Negative) Urine Nitrite Negative (Negative) Urine Bilirubin Negative (Negative) Urine Urobilinogen Negative (Negative) Ur Leukocyte Esterase Negative (Negative) 08/18/19 Range/Units 08:56 WBC 7.12 (4.8-10.8) K/uL RBC 4.19 L (4.7-6.1) M/uL Hgb 13.0 L (14.0-18.0) g/dL Hct 38.0 L (42-52) % MCV 90.7 (80-100) fL MCH 31.0 (25-34) pg MCHC 34.2 (32-36) g/dL RDW Std Deviation 42.7 (36.4-46.3) fL RDW Coeff of Kemi 12.8 (11.5-14.5) % Plt Count 223 (130-400) K/uL MPV 8.9 (7.4-10.4) fL Immature Gran % (Auto) 2.9 % Neut % (Auto) 69.3 % Lymph % (Auto) 13.9 % Kay % (Auto) 13.2 % Eos % (Auto) 0.4 % Baso % (Auto) 0.3 % Neut # (Auto) 4.93 (1.4-6.5) K/uL Lymph # (Auto) 0.99 L (1.2-3.4) K/uL Kay # (Auto) 0.94 H (0.11-0.59) K/uL Eos # (Auto) 0.03 (0-0.5) K/uL Baso # (Auto) 0.02 (0-0.2) K/uL Immature Gran # (Auto) 0.21 H (0.00-0.02) K/uL Toxic Granulation 3+ Sodium (136-145) mmol/L Potassium (3.5-5.1) mmol/L Chloride (98-107) mmol/L Carbon Dioxide (21-32) mmol/L Anion Gap (3-11) BUN (7-18) mg/dl Creatinine (0.6-1.4) mg/dl Est Cr Clr Drug Dosing ml/min Est GFR ( Amer) Est GFR (Non-Af Amer) BUN/Creatinine Ratio (10-20) Glucose (70-99) mg/dl Calcium (8.5-10.1) mg/dl Total Bilirubin (0.2-1) mg/dl AST (15-37) U/L ALT (12-78) U/L Alkaline Phosphatase (45-117) U/L Total Protein (6.4-8.2) gm/dl Albumin (3.4-5.0) gm/dl Globulin (2.5-4.0) gm/dl Albumin/Globulin Ratio (0.9-2) Lipase (73-393) U/L Procalcitonin (0-0.5) ng/ml Urine Color Urine Appearance (Clear) Urine pH (4.5-7.5) Ur Specific [place] (1.000-1.030) Urine Protein (Negative) Urine Glucose (UA) (Negative) Urine Ketones (Negative) Urine Blood (Negative) Urine Nitrite (Negative) Urine Bilirubin (Negative) Urine Urobilinogen (Negative) Ur Leukocyte Esterase (Negative) Diagnostic Findings EKGs reviewed. Abdomen/Pelvis CT and hepatobiliary scan reviewed. PG Care Time/CCT Total # of Minutes Spent Total Time Spent with Patient: Total time spent is greater than 50% in coordination of care (as documented) at patient's floor/unit and/or counseling patient: Coding Level of Care Code 73676 Initial Inpt Care Lvl 3 Diagnoses CAD (coronary artery disease) I25.10 Dyslipidemia E78.5 Ischemic cardiomyopathy I25.5 Presence of drug-eluting stent in right coronary artery Z95.5 Cholelithiasis K80.20
--- NOTE | 2019-08-19 11:27 | Hospitalist Progress Note ---
Date of Service August 19, 2019 Assessment & Plan (1) Cholelithiasis: with cystic duct obstruction possible Cholecystitis -This is a 69 year old male with right upper quadrant abdominal pain that started around 11PM on 08/17/2019. He reported a dinner meal of tacos. Patient denies vomiting or changes in bowel movements or fevers. He has history of myocardial infraction in 2014 and has been on dual antiplatelets or aspirin daily and plavix daily since that time. He denies chest pain or shortness of breath, no dizziness or lightheadedness. On ED presentation on 08/18/2019, his CT abdomen imaging "Cholelithiasis with trace pericholecystic fluid and equivocal increased gallbladder luminal pressure. Clinical correlation in regards to acute cholecystitis is recommended. If deemed clinically appropriate, a nuclear medicine hepatic biliary study could be obtained in follow-up" -ED provider reports that they discussed with general surgery who agreed with radiology impression to get HIDA scan in case of acute cholecystitis . patient started on ceftriaxone 2000 grams empirically by ED provider in case of acute cholecystitis -Family history of mother with gallbladder removed and father with diabetes -HIDA scan on 08/19/2019: Nonvisualization of the gallbladder. Given the clinical presentation and CT findings, this implies cystic duct obstruction. -Gastroenterology service reports that ERCP cannot reach cystic duct and likely will need cholecystectomy and possible intraoperative cholangiogram, general surgery had plans for going to the operating room on 08/20/2019, patient clinically not in distress but WBC elevated as 13,000 by 08/19/2019 and to continue ceftriaxone antibiotics for now History of myocardial infarction in the past -He has history of myocardial infraction in 2014 and has been on dual antiplatelets or aspirin daily and plavix daily since that time -he took morning medications prior to arriving to ED, hold the aspirin and plavix and statin and furosemide and lisinopril for now -continue home dose metoprolol [facility] full note for pre-operative assessment, anesthesia consult paroxysmal atrial fibrillation -[facility] cardiology notes documented episode of atrial fibrillation after myocardial infarction in the past, appears to be generally sinus rhythm, questionable atrial fibrillation on admission EKG, EKG of sinus rhythm on 08/19/2019 GERD (gastroespohageal reflux disease) -continue home dose pantoprazole DVT prophylaxis: SCDs for now Full Code Status [id number] Admission and Anticipated Discharge Date Admission Date: August 18, 2019 Subjective -HIDA scan on 08/19/2019: Nonvisualization of the gallbladder. Given the clinical presentation and CT findings, this implies cystic duct obstruction. -Gastroenterology service reports that ERCP cannot reach cystic duct and likely will need cholecystectomy and possible intraoperative cholangiogram, general surgery had plans for going to the operating room on 08/20/2019, patient clinically not in distress but WBC elevated as 13,000 by 08/19/2019 and to continu e ceftriaxone antibiotics for now patient still some pressure of right upper quadrant but not in acute pain. no vomiting. no fevers overnight. no dizziness. no headache. no chest pain. no shortness of breath. no palpitations Review of Systems Review of Systems: All systems reviewed & are unremarkable except as noted in Subjective Physical Exam Constitutional: + obese Eyes: PERRL, conjunctivae normal, anicteric sclerae EOM intact bilaterally ENMT: external ear and nose normal, oropharynx normal Neck: trachea midline, no thyromegaly normal visual inspection Respiratory: normal respiratory effort, lungs clear to auscultation Cardiovascular: Rate/Rhythm: regular rate Gastrointestinal (Abdomen): right upper quadrant tenderness Musculoskeletal: Head/Neck/Chest: normocephalic and head atraumatic Neurologic: PERRL, EOMI, accommodation nl, no face palsy, no dysarthria CN's II-XI intact bilaterally Psychiatric: A+Ox3, euthymic affect Results & Data Results & Data ([facility]) Vital Signs (Past 12 Hours) Vital Signs Temp Pulse Resp BP Pulse Ox 08/19/19 07:14 37.3 C 93 H 16 116/68 94
--- NOTE | 2019-08-19 13:19 | Gastrointestinal Consultation ---
Date of Consultation August 19, 2019 Assessment & Plan (1) Cholelithiasis: This is a 69 y/o male with PMhx CAD s/p stents, admitted with RUQ pain, CT with cholelithiasis, ? acute cholecystitis and HIDA with nonvisualized GB implying cystic duct obstruction. No elevation of LFTs, tbili. Reviewed case with our endoscopist who performs ERCP, and this would not be amenable to ERCP. Given pt's presentation is c/w cholecystitis with cystic duct obstruction, will defer to surgical team for management; pt is scheduled for cholecystectomy tomorrow. - Continue management per surgery service - Intraop cholangiogram may help evaluate CBD - GI will sign off. Please call with questions Thank you for allowing us to participate in the care of this patient. Please call with any acute changes, questions or concerns. Please see addendum below with additional recommendation from my supervising physician. History of Present Illness Reason for Consultation: request ERCP based on HIDA for cystic duct obstruc Attending Physician: Manolo Newman MD History of Present Illness This is a 69 y/o male with PMHx HTN, CAD s/p stents, admitted with RUQ abd pain, found to have cholelithiasis with ? acute cholecystitis on CTAP. Labs with no leukocytosis, and t.bili, LFTs, lipase WNL. Surgery was consulted and HIDA scan shows nonvisualized GB, implying cystic duct obstruction GI consulted to consider ERCP for cystic duct obstruction. GERD stable on PPI. Abd pain improved after initial analgesia but then returned. He is on empiric ABX and NPO. He's afebrile. Denies n/v, chest pain, dyspnea, fever, jaundice. Allergies Allergy/AdvReac Type Severity Reaction Status Date / Time No Known Allergies Allergy Unverified 07/15/19 13:47 Home Medications Home Medications Medication Instructions Recorded Confirmed Type atorvastatin 80 mg tablet 80 mg PO DAILY #30 tab 10/05/18 08/18/19 History pantoprazole 40 mg tablet,delayed 40 mg PO DAILY #90 tab 10/05/18 08/18/19 History release nitroglycerin 0.4 mg sublingual 0.4 mg SL Q5M PRN #25 tab 11/09/18 08/18/19 Rx tablet clopidogrel 75 mg tablet 75 mg PO DAILY #90 tab 01/01/19 08/18/19 Rx furosemide 20 mg tablet 20 mg PO DAILY #90 tab 01/27/19 08/18/19 Rx lisinopril 10 mg tablet 10 mg PO DAILY #90 tab 05/14/19 08/18/19 Rx metoprolol succinate 50 mg 50 mg PO DAILY #30 tab 05/14/19 08/18/19 Rx tablet,extended release 24 hr aspirin [Aspirin Low Dose] 81 mg PO DAILY 08/18/19 08/18/19 History Patient History Medical History Atrial fibrillation AV block, 3rd degree CAD (coronary artery disease) Cholelithiasis Dyslipidemia Heart failure Hepatic steatosis Hypertension Hyponatremia Inferior myocardial infarction Ischemic cardiomyopathy Other secondary thrombocytopenia Pericarditis Presence of drug-eluting stent in right coronary artery Shock liver Family History Father Stroke Mother Stroke Sister Congenital heart disease Social History Preferred Language: Greenlandic Communication Ability: Effective Knot Tying Operator Required: No Beliefs That Will Affect Care: None marital status: Current Living Situation: Spouse current occupational status: retired Other Information That Helps Us Care for You: No Feels Safe at Home: Yes Safety Concerns: Feels Safe At This Time Smoking Status: Never smoker Hx Alcohol Use: No Hx Substance Use: No Review of Systems Review of Systems: All systems reviewed & are unremarkable except as noted in HPI & below Physical Exam Constitutional: WD/WN, vitals as above Respiratory: normal respiratory effort Cardiovascular: Rate/Rhythm: regular rate and regular rhythm Gastrointestinal (Abdomen): Inspection/Auscultation: abdomen normal to inspe ction; abdomen not distended + RUQ tenderness Skin: no rashes, warm and dry Psychiatric: A+Ox3, euthymic affect Results & Data ([facility]) Vital Signs (Past 12 Hours) Vital Signs Temp Pulse Resp BP Pulse Ox 08/19/19 07:14 37.3 C 93 H 16 116/68 94 Laboratory Results 08/19/19 08/19/19 Range/Units 05:14 05:14 WBC 13.34 H (4.8-10.8) K/uL RBC 4.10 L (4.7-6.1) M/uL Hgb 12.8 L (14.0-18.0) g/dL Hct 37.3 L (42-52) % MCV 91.0 (80-100) fL MCH 31.2 (25-34) pg MCHC 34.3 (32-36) g/dL RDW Std Deviation 43.2 (36.4-46.3) fL RDW Coeff of Kemi 13.0 (11.5-14.5) % Plt Count 207 (130-400) K/uL MPV 8.6 (7.4-10.4) fL Immature Gran % (Auto) 1.4 % Neut % (Auto) 79.1 % Lymph % (Auto) 10.3 % [place] % (Auto) 9.0 % Eos % (Auto) 0.1 % Baso % (Auto) 0.1 % Neut # (Auto) 10.55 H (1.4-6.5) K/uL Lymph # (Auto) 1.37 (1.2-3.4) K/uL [place] # (Auto) 1.20 H (0.11-0.59) K/uL Eos # (Auto) 0.01 (0-0.5) K/uL Baso # (Auto) 0.02 (0-0.2) K/uL Immature Gran # (Auto) 0.19 H (0.00-0.02) K/uL RBC Morphology Unremarkable Sodium 137 (136-145) mmol/L Potassium 4.1 (3.5-5.1) mmol/L Chloride 102 (98-107) mmol/L Carbon Dioxide 31 (21-32) mmol/L Anion Gap 4.0 (3-11) BUN 10 D (7-18) mg/dl Creatinine 0.88 (0.6-1.4) mg/dl Est Cr Clr Drug Dosing 88.1 ml/min Est GFR ( Amer) 101.6 Est GFR (Non-Af Amer) 87.6 BUN/Creatinine Ratio 11.3 (10-20) Glucose 97 (70-99) mg/dl Calcium 8.4 L (8.5-10.1) mg/dl Total Bilirubin 0.7 (0.2-1) mg/dl AST 26 (15-37) U/L ALT 50 (12-78) U/L Alkaline Phosphatase 96 (45-117) U/L Total Protein 6.4 (6.4-8.2) gm/dl Albumin 2.5 L (3.4-5.0) gm/dl Globulin 3.9 (2.5-4.0) gm/dl Albumin/Globulin Ratio 0.6 L (0.9-2) Diagnostic Findings CTAP with IV contrast Lower chest: There is respiratory motion artifact. There are mild dependent atelectatic changes. Liver: There is a 15 mm left lobe hepatic hypodensity, likely representing a cyst. There is trace perihepatic fluid. Gallbladder: There is a calcified gallstone. The gallbladder is distended with equivocal increased luminal pressure. Clinical correlation regards to acute cholecystitis is recommended. Spleen: Normal in size and attenuation. Pancreas: Unremarkable. Adrenal glands: Unremarkable. Kidneys: There is a 23 mm left renal cortical cyst. There is no hydronephrosis. Bowel: There are no transition zones indicate bowel obstruction. The appendix appears normal. There is no evidence of acute diverticulitis. Borderline colonic wall thickening the transverse colon likely represents a nondistended segment Peritoneum: There is trace fluid within the abdomen. Vasculature: The abdominal aorta is normal in course and caliber. Adenopathy: None. Pelvic viscera: The bladder, and pelvic viscera are unremarkable. Skeletal structures: No destructive osseous lesions are seen. IMPRESSION: 1. No evidence of bowel obstruction. No evidence of free air. 2. Cholelithiasis with trace pericholecystic fluid and equivocal increased gallbladder luminal pressure. Clinical correlation in regards to acute cholecystitis is recommended. If deemed clinically appropriate, a nuclear medicine hepatic biliary study could be obtained in follow-up 3. Trace perihepatic fluid 4. Normal appendix. No evidence of acute diverticulitis. HIDA: 1. Nonvisualization of the gallbladder. Given the clinical presentation and CT findings, this implies cystic duct obstruction.
--- NOTE | 2019-08-19 14:54 | Surgery Progress Note ---
Date of Service August 19, 2019 Assessment & Plan (1) Cholelithiasis: 69 year-old male with history of CAD with myocardial infarction in 2015 with 2 stents placed on aspirin and plavix who presented to ED 08/18/2019 with complaint of RUQ abdominal pain that began evening prior around 11 pm after eating bowl of ice cream. CT scan showing cholelithiasis with mild pericholecystic fluid and intraluminal increased pressure, equivocal for acute cholecystitis. no leukocytosis. t. bili/lfts/lipase wnl. afebrile. 08/19/2019: - HIDA scan showing cystic duct obstruction consistent with acute cholecystitis Leukocytosis of 13k today, afebrile, vitals stable pain better today Plan: Plan for laparoscopic cholecystectomy tomorrow with Dr. Byrne. Discussed procedure, risks, and recovery with patient and . Informed consent will be obtained tomorrow by dr. Byrne May have full liquids tonight, NPO after midnight continue to hold plavix appreciate cardiology preop clearance continue medical management (2) Cholecystitis: Subjective feeling good pain still present but not as bad hungry and thirsty had HIDA scan this morning Physical Exam Constitutional: WD/WN, vitals as above no acute distress and not ill appearing Respiratory: normal respiratory effort; no respiratory distress Gastrointestinal (Abdomen): Inspection/Auscultation: abdomen normal to inspection Skin: no rashes, warm and dry Psychiatric: A+Ox3, euthymic affect Results & Data Vital Signs (Past 12 Hours) Vital Signs Temp Pulse Resp BP Pulse Ox 08/19/19 07:14 37.3 C 93 H 16 116/68 94 Laboratory Results 08/19/19 08/19/19 Range/Units 05:14 05:14 WBC 13.34 H (4.8-10.8) K/uL RBC 4.10 L (4.7-6.1) M/uL Hgb 12.8 L (14.0-18.0) g/dL Hct 37.3 L (42-52) % MCV 91.0 (80-100) fL MCH 31.2 (25-34) pg MCHC 34.3 (32-36) g/dL RDW Std Deviation 43.2 (36.4-46.3) fL RDW Coeff of Kemi 13.0 (11.5-14.5) % Plt Count 207 (130-400) K/uL MPV 8.6 (7.4-10.4) fL Immature Gran % (Auto) 1.4 % Neut % (Auto) 79.1 % Lymph % (Auto) 10.3 % [place] % (Auto) 9.0 % Eos % (Auto) 0.1 % Baso % (Auto) 0.1 % Neut # (Auto) 10.55 H (1.4-6.5) K/uL Lymph # (Auto) 1.37 (1.2-3.4) K/uL [place] # (Auto) 1.20 H (0.11-0.59) K/uL Eos # (Auto) 0.01 (0-0.5) K/uL Baso # (Auto) 0.02 (0-0.2) K/uL Immature Gran # (Auto) 0.19 H (0.00-0.02) K/uL RBC Morphology Unremarkable Sodium 137 (136-145) mmol/L Potassium 4.1 (3.5-5.1) mmol/L Chloride 102 (98-107) mmol/L Carbon Dioxide 31 (21-32) mmol/L Anion Gap 4.0 (3-11) BUN 10 D (7-18) mg/dl Creatinine 0.88 (0.6-1.4) mg/dl Est Cr Clr Drug Dosing 88.1 ml/min Est GFR ( Amer) 101.6 Est GFR (Non-Af Amer) 87.6 BUN/Creatinine Ratio 11.3 (10-20) Glucose 97 (70-99) mg/dl Calcium 8.4 L (8.5-10.1) mg/dl Total Bilirubin 0.7 (0.2-1) mg/dl AST 26 (15-37) U/L ALT 50 (12-78) U/L Alkaline Phosphatase 96 (45-117) U/L Total Protein 6.4 (6.4-8.2) gm/dl Albumin 2.5 L (3.4-5.0) gm/dl Globulin 3.9 (2.5-4.0) gm/dl Albumin/Globulin Ratio 0.6 L (0.9-2) Diagnostic Findings NM hepatobiliary CLINICAL HISTORY: Abdominal pain. Abnormal CT scan. COMPARISON STUDY: CT scan dated 08/18/2019 FINDINGS: Patient was injected with 5.6 mCi of technetium 99m Choletec. Sequential anterior imaging was performed. Hepatic excretion appeared unremarkable. There is normal passage of activity into small bowel. At 1 hour, the gallbladder was not visualized. The patient was injected with 2 mg of intravenous morphine. Additional imaging up to 90 minutes was performed. The gallbladder was nonvisualized. IMPRESSION: 1. Nonvisualization of the gallbladder. Given the clinical presentation and CT findings, this implies cystic duct obstruction
--- NOTE | 2019-08-20 04:53 | Electrocardiogram Report ---
Test Reason : Blood Pressure : / mmHG Vent. Rate : 096 BPM Atrial Rate : 096 BPM P-R Int : 156 ms QRS Dur : 084 ms QT Int : 326 ms P-R-T Axes : 034 -14 124 degrees QTc Int : 411 ms Normal sinus rhythm Inferior infarct (cited on or before 07-JAN-2015) Abnormal ECG When compared with ECG of 18-AUG-2019 08:47, Sinus rhythm has replaced Atrial fibrillation T wave inversion more evident in Lateral leads Confirmed by Jeremy Figueroa ([id number]) on 08/20/2019 4:53:39 AM Referred By: REFERRED SELF Confirmed By:Jeremy Figueroa
--- NOTE | 2019-08-20 06:49 | Anesthesiology Consultation ---
Date of Service August 20, 2019 Assessment & Plan (1) Encounter for pre-operative examination: Chart Review Chart Review: Acceptable Risk for Surgery Consults Requested none ASA ASA3 Proposed Anesthesia Anesthesia Type: General Risk / Benefits Reviewed With: PT / POA / Parent / Guardian, Accepts Plan and Informed Consent Obtained History Surgery Operation Date: 08/20/19 12:35 Proposed Procedures p Laparoscopic Cholecystectomy - Sofia Byrne MD Height/Weight Height: 5 ft 8 in Weight: 94 kg Allergies Allergy/AdvReac Type Severity Reaction Status Date / Time No Known Allergies Allergy Unverified 07/15/19 13:47 Medications Home Medications Medication Instructions Recorded Confirmed Last Taken atorvastatin 80 mg tablet 80 mg PO DAILY #30 tab 10/05/18 08/18/19 08/18/19 pantoprazole 40 mg tablet,delayed 40 mg PO DAILY #90 tab 10/05/18 08/18/19 Unknown release nitroglycerin 0.4 mg sublingual 0.4 mg SL Q5M PRN #25 tab 11/09/18 08/18/19 Unknown tablet clopidogrel 75 mg tablet 75 mg PO DAILY #90 tab 01/01/19 08/18/19 08/18/19 furosemide 20 mg tablet 20 mg PO DAILY #90 tab 01/27/19 08/18/19 08/18/19 lisinopril 10 mg tablet 10 mg PO DAILY #90 tab 05/14/19 08/18/19 08/18/19 metoprolol succinate 50 mg 50 mg PO DAILY #30 tab 05/14/19 08/18/19 08/18/19 tablet,extended release 24 hr aspirin [Aspirin Low Dose] 81 mg PO DAILY 08/18/19 08/18/19 08/18/19 Active Medications Generic Name Dose Route Start Last Admin Trade Name Freq PRN Reason Stop Dose Admin Hydromorphone HCl 0.5 mg 08/18/19 11:22 08/18/19 16:18 Dilaudid IV 09/01/19 11:21 0.5 mg Q6H PRN Administration Severe Pain Ioversol 93 ml 08/18/19 10:06 08/18/19 10:07 Optiray 320 100ml IV 08/22/19 10:05 93 ml ONCE PRN Administration Interaction Checking Metoprolol Succinate 50 mg 08/19/19 09:00 08/20/19 07:55 Toprol Xl PO 09/18/19 08:59 50 mg DAILY TOM Administration Pantoprazole Sodium 40 mg 08/19/19 09:00 08/19/19 08:54 Protonix PO 09/18/19 08:59 Not Given DAILY TOM NPO Date Last Intake of Fluids: 08/19/19 Time Last Intake of Fluids: 23:59 Date Last Intake of Solids: 08/19/19 Time Last Intake of Solids: 23:59 Past Medical History Medical History Atrial fibrillation AV block, 3rd degree CAD (coronary artery disease) Cholelithiasis Dyslipidemia Heart failure Hepatic steatosis Hypertension Hyponatremia Inferior myocardial infarction Ischemic cardiomyopathy Other secondary thrombocytopenia Pericarditis Presence of drug-eluting stent in right coronary artery Shock liver Exercise / Class Metabolic Activity II 4-5 Yardwork/Stairs/Walk up hill Past Family History Family History Father Stroke Mother Stroke Sister Congenital heart disease Past Anesthesia History No Hx of Anesthesia Complications and No Family Hx of Anesthesia Complications History of PONV No Hx of PONV and No Hx of Motion Sickness Social History Smoking Status: Never smoker Hx Alcohol Use: No Hx Substance Use: No Physical Exam Vital Signs Last Vital Signs Temp 98.2 F 08/20/19 09:28 Pulse 124 H 08/20/19 09:28 Resp 20 08/20/19 09:28 BP 136/89 08/20/19 09:28 Pulse Ox 96 08/20/19 09:28 ENMT Mouth: no dentition abnormality Thyromental Distance: > or= 3.5 Finger Breadths Mallampati Class: II Neck normal visual inspection Respiratory normal respiratory effort Auscultation: lungs clear to auscultation bilaterally Cardiovascular Rate/Rhythm: regular rate and regular rhythm Testing Laboratory Results 08/20/19 07:13 08/20/19 07:13 Urine Color Yellow 08/18/19 10:36 Urine Appearance Clear (Clear) 08/18/19 10:36 Urine pH 5.0 (4.5-7.5) 08/18/19 10:36 Ur Specific [place] 1.035 (1.000-1.030) H 08/18/19 10:36 Urine Protein Negative (Negative) 08/18/19 10:36 Urine Glucose (UA) Negative (Negative) 08/18/19 10:36 Urine Ketones Negative (Negative) 08/18/19 10:36 Urine Nitrite Negative (Negative) 08/18/19 10:36 Ur Leukocyte Esterase Negative (Negative) 08/18/19 10:36 Blood Type A Positive 08/20/19 07:13 Antibody Screen NEGATIVE 08/20/19 07:13 08/18/19 12:06 Aerobic Blood Culture - Preliminary Blood No growth in Aerobic bottle after 24 hours. Anaerobic Blood Culture - Final 08/18/19 12:08 Aerobic Blood Culture - Preliminary Blood No growth in Aerobic bottle after 24 hours. Anaerobic Blood Culture - Final Electrocardiogram Date: 08/19/19 Normal sinus rhythm, rate 96 bpm Inferior infarct (cited on or before 07-JAN-2015) ST & T wave abnormality, consider lateral ischemia Abnormal ECG When compared with ECG of 18-AUG-2019 08:47, Sinus rhythm has replaced Atrial fibrillation T wave inversion more evident in Lateral leads Confirmed by Jeremy Figueroa ([id number]) on 08/20/2019 4:53:39 AM
[2019-08-20] MEDS ORDERED: fentaNYL citrate 100 MCG/2 ML VIAL IV PRN (06:51)
[2019-08-20] MEDS ORDERED: ONDANSETRON INJ 2 MG/ML 2 ML VIAL IV PRN (06:51)
[2019-08-20] MEDS ORDERED: ePHEDrine sulfate 50 MG/ML AMP IV PRN (06:51)
[2019-08-20] MEDS ORDERED: ATROPINE SULFATE 0.1 MG/ML 10ML SYR IV PRN (06:51)
[2019-08-20] MEDS ORDERED: ACETAMINOPHEN 325 MG TAB PO STA (07:26)
[2019-08-20 07:32] LABS: Hematocrit (blood only) 40.7 % (42-52); Hemoglobin 13.5 g/dL (14.0-18.0); Mean Corpuscular Hemoglobin 30.8 pg (25-34); Mean Corpuscular Hgb Conc 33.2 g/dL (32-36); Mean Corpuscular Volume 92.9 fL (80-100); Mean Platelet Volume 8.6 fL (7.4-10.4); Platelet Count 247 K/uL (130-400); RDW Coefficient of Variation 12.9 % (11.5-14.5); RDW Standard Deviation 44.1 fL (36.4-46.3); Red Blood Count 4.38 M/uL (4.7-6.1); White Blood Count 18.97 K/uL (4.8-10.8)
[2019-08-20] MEDS ORDERED: SODIUM CHLORIDE 0.9% 1000ML 500 ML IV ONE (07:53)
[2019-08-20] MEDS ORDERED: PIPERACILL/TAZOBAC CONSULT ACTIVE PRN (07:53)
[2019-08-20] MEDS: METOPROLOL SUCC 50MG EXT REL TAB PO SCH (07:55)
[2019-08-20 08:02] LABS: Albumin Level 2.6 gm/dl (3.4-5.0); BUN Creatinine Ratio 10.8 (10-20); Creatinine Clr Calc Pharmacy 88.1 ml/min; Est GFR (African American) 101.6; Est GFR (Non-African American) 87.6; Potassium 4.2 mmol/L (3.5-5.1)
--- NOTE | 2019-08-20 08:02 | Hospitalist Progress Note ---
Date of Service August 20, 2019 Assessment & Plan (1) Cholelithiasis: with cystic duct obstruction possible Cholecystitis with fevers -This is a 69 year old male with right upper quadrant abdominal pain that started around 11PM on 08/17/2019. He reported a dinner meal of tacos. Patient denies vomiting or changes in bowel movements or fevers. He has history of myocardial infraction in 2014 and has been on dual antiplatelets or aspirin daily and plavix daily since that time. He denies chest pain or shortness of breath, no dizziness or lightheadedness. On ED presentation on 08/18/2019, his CT abdomen imaging "Cholelithiasis with trace pericholecystic fluid and equivocal increased gallbladder luminal pressure. Clinical correlation in regards to acute cholecystitis is recommended. If deemed clinically appropriate, a nuclear medicine hepatic biliary study could be obtained in follow-up" -ED provider reports that they discussed with general surgery who agreed with radiology impression to get HIDA scan in case of acute cholecystitis . patient started on ceftriaxone 2000 grams empirically by ED provider in case of acute cholecystitis -Family history of mother with gallbladder removed and father with diabetes -HIDA scan on 08/19/2019: Nonvisualization of the gallbladder. Given the clinical presentation and CT findings, this implies cystic duct obstruction. -08/19/2019: Gastroenterology service reports that ERCP cannot reach cystic duct and likely will need cholecystectomy and possible intraoperative cholangiogram, general surgery had plans for going to the operating room on 08/20/2019, patient clinically not in distress but WBC elevated as 13,000 by 08/19/2019 was continued the ceftriaxone antibiotics for now -08/20/2019: patient had fever of 38.7 C, hospitalist assessed patient - he is not in distress and reports abdominal pain has been unchanged. will get blood cultures again and change the antibiotics from ceftriaxone to Zosyn q8 hours. patient to get IV fluids for the mild tachycardia. I think these fevers can be best addressed if patient goes to operating room to remove the infectious source with cholecystectomy History of myocardial infarction in the past -He has history of myocardial infraction in 2014 and has been on dual antipl atelets or aspirin daily and plavix daily since that time -he took morning medications prior to arriving to ED, and then home medications were held of the aspirin and plavix to prevent bleed risks from surgery, and statin because of interrupted oral intake, and holding the furosemide and holding the lisinopril for now -[facility] cardiology would wish aspirin to be resumed as soon as possible but we are expecting patient to go to operating room on 08/20/2019 and general surgery had requested previously to hold off medication that can increase bleed risk -continue home dose metoprolol paroxysmal atrial fibrillation -[facility] cardiology notes documented episode of atrial fibrillation after myocardial infarction in the past, appears to be generally sinus rhythm, questionable atrial fibrillation on admission EKG, EKG of sinus rhythm on 08/19/2019 -[facility] notes that patient has CHADSVASc score of at least 2, and long-term anticoagulation therapy is therefore indicated for thromboembolic prophylaxis. Recommend utilizing a novel anticoagulant such as Eliquis. This can be initiated following surgery, once safe from a bleeding standpoint. His Plavix therapy can then be discontinued, and he can remain on low dose aspirin therapy. GERD (gastroespohageal reflux disease) -continue home dose pantoprazole DVT prophylaxis: SCDs for now Full Code Status [id number] Admission and Anticipated Discharge Date Admission Date: August 18, 2019 Subjective patient had fever of 38.7 C, hospitalist assessed patient - he is not in distress and reports abdominal pain has been unchanged. will get blood cultures again and change the antibiotics from ceftriaxone to Zosyn q8 hours. IV fluid of 500 cc bolus to be given for mild tachycardia breathing on room air. no shortness of breath. no chest pain. no dizziness. no lightheadedness. no vomiting Review of Systems Review of Systems: All systems reviewed & are unremarkable except as noted in Subjective Physical Exam Constitutional: + obese Eyes: PERRL, conjunctivae normal, anicteric sclerae EOM intact bilaterally ENMT: external ear and nose normal, oropharynx normal Neck: trachea midline, no thyromegaly normal visual inspection Respiratory: normal respiratory effort, lungs clear to auscultation Cardiovascular: Rate/Rhythm: + tachycardic Gastrointestinal (Abdomen): Inspection/Auscultation: normal bowel sounds Percussion/Palpation: abdomen soft Musculoskeletal: Head/Neck/Chest: normocephalic and head atraumatic Neurologic: PERRL, EOMI, accommodation nl, no face palsy, no dysarthria CN's II-XI intact bilaterally Psychiatric: A+Ox3, euthymic affect Results & Data Results & Data ([facility]) Vital Signs (Past 12 Hours) Vital Signs Temp Pulse Resp BP BP Pulse Ox 08/20/19 07:03 37.8 C H 08/20/19 07:02 37.3 C 08/20/19 07:00 37.9 C H 106 H 14 113/67 93 08/19/19 23:16 37.1 C 96 H 14 115/67 94
[2019-08-20 08:05] LABS: Albumin Globulin Ratio 0.6 (0.9-2); Bilirubin,Total 1.2 mg/dl (0.2-1); Globulin 4.5 gm/dl (2.5-4.0); Total Protein 7.1 gm/dl (6.4-8.2)
[2019-08-20 08:19] LABS: Basophils # (auto) 0.01 K/uL (0-0.2); Basophils % (auto) 0.1 %; Eosinophils # (auto) 0.04 K/uL (0-0.5); Eosinophils % (auto) 0.2 %; Immature Granulocytes # (auto) 0.21 K/uL (0.00-0.02); Immature Granulocytes % (auto) 1.1 %; Lymphocytes # (auto) 1.34 K/uL (1.2-3.4); Lymphocytes % (auto) 7.1 %; Monocytes # (auto) 1.18 K/uL (0.11-0.59); Monocytes % (auto) 6.2 %; Neutrophils # (auto) 16.19 K/uL (1.4-6.5); Neutrophils % (auto) 85.3 %
[2019-08-20] MEDS ORDERED: PIPERACILLIN/TAZOBACTAM 4.5 GM in DEXTROSE 5% 100 ML IV ONE (08:30)
[2019-08-20] MEDS ORDERED: PROPOFOL IV EMULSION 10 MG/ML 20 ML VIAL IV ONE (08:59)
[2019-08-20] MEDS ORDERED: MIDAZOLAM HCL 1 MG/ML 2ML VIAL ONE (08:59)
[2019-08-20] MEDS ORDERED: ROCURONIUM BROMIDE 10 MG/ML 5 ML VIAL IV ONE (08:59)
[2019-08-20] MEDS ORDERED: fentaNYL citrate 100 MCG/2 ML VIAL ONE ×2 (08:59→12:16)
[2019-08-20] MEDS ORDERED: LIDOCAINE HCL 2% 2 ML VIAL/AMP(20MG/ML) INFIL ONE (08:59)
[2019-08-20] MEDS ORDERED: DEXAMETHASONE SOD INJ 4 MG/ML VIAL ONE (08:59)
[2019-08-20] MEDS ORDERED: ONDANSETRON INJ 2 MG/ML 2 ML VIAL ONE (08:59)
--- NOTE | 2019-08-20 10:28 | History & Physical Bridge Note ---
Date of Service August 20, 2019 History & Physical Bridge Note I have examined the patient, reviewed the History & Physical and in the interval since the performance of the History & Physical I have noted the following changes of clinical significance: no changes noted, base on pt has T 37.8, and WBC 17,000, most likely pt may has CBD stone, cholangitis, D/W GI doctor who recommend to intra-op cholangiogram, if positive for CBD stone they will do ERCP, D/W possible pt needs ERCP after cholecystectomy, pt understood, he agrees with the plan, I answered all questions,
[2019-08-20] MEDS ORDERED: BACITRACIN OINT 15 GM TUBE ONE (11:02)
[2019-08-20] MEDS ORDERED: LIDOCAINE HCL 1% 20 ML VIAL ONE (11:02)
[2019-08-20] MEDS ORDERED: BUPIVACAINE 0.5 % 5 MG/1 ML MPF 30ML VIAL ONE (11:02)
[2019-08-20] MEDS ORDERED: METOPROLOL TARTRATE 1 MG/ML VIAL IV ONE (12:16)
[2019-08-20] MEDS ORDERED: SUGAMMADEX SODIUM 200 MG/2 ML VIAL IV ONE (12:17)
[2019-08-20] MEDS ORDERED: SODIUM CHLORIDE 0.9% INJ 10 ML VIAL ONE (12:26)
[2019-08-20] MEDS ORDERED: OPTIRAY 300 IV PRN ×2 (13:14→13:16)
--- NOTE | 2019-08-20 13:41 | Fluoroscopy Report ---
[place] cholangiogram OR CLINICAL HISTORY: CHOLANGIOGRAM COMPARISON STUDY: None FLUOROSCOPY TIME: 7 seconds. NUMBER OF FLUOROSCOPIC IMAGES: 2 FINDINGS: 2 images from an intraoperative cholangiogram are provided for interpretation. Contrast is visualized within the duodenum and distal common bile duct. The ductal system is inadequately opacifi ed. There is mild extravasation. IMPRESSION: Nondiagnostic study. ACT 112: Negative or not required by law. Electronically signed by: Ambrosio Mckinney M.D. 08/20/2019 1:39 PM
--- NOTE | 2019-08-20 13:48 | Post Operative Brief Note ---
Immediate Post Op Note v1 Date of Surgery August 20, 2019 Pre & Post Diagnosis Operation Date: 08/20/19 12:35 Pre-Op Diagnosis: Cholelithiasis, acute cholecystitis Post-Op Diagnosis: Cholelithiasis, acute cholecystitis with gangrenous gallbladder I identified the patient and participated in the time-out.: Yes Procedure Operation Date: 08/20/19 12:35 Actual Procedures p Laparoscopic Cholecystectomy, Cholangiogram(Not Applicable) - Sofia Byrne MD Surgeon Sofia Byrne MD Typing Office Worker YOLY Richards Estimated Blood Loss 30 Findings Consistent with Post-Op Diagnosis acute cholecystitis with gangrenous gallbladder Fluids 1500ml Specimens gallbladder Drains Gregg-King Drain (10 mfr flat) Anesthesia Type General Complications none Disposition Accompanied Patient To Recovery: Yes Disposition: Recovery Room Overlapping Procedure I was immediately available: during the entire case.
[2019-08-20] MEDS ORDERED: ESMOLOL HCL INJ 10 MG/ML 10ML VIAL IV ONE (14:23)
--- NOTE | 2019-08-20 14:47 | Anesthesiology Progress Note ---
Date of Service August 20, 2019 Anesthesia Post Procedure Vital Signs Vital Signs: Temp Pulse Pulse Resp BP BP Pulse Ox 08/20/19 14:37 36.2 C L 103 H 18 94/75 L 100 08/20/19 14:29 36.7 C 78 16 127/85 96 08/20/19 09:28 36.8 C 124 H 20 136/89 96 08/20/19 09:25 36.5 C 08/20/19 07:03 37.8 C H 08/20/19 07:02 37.3 C 08/20/19 07:00 37.9 C H 106 H 14 113/67 93 08/19/19 23:16 37.1 C 96 H 14 115/67 94 08/19/19 15:09 36.9 C 100 H 14 133/76 91 Pain Intensity Upper Abdomen: Pain Intensity: 1 Transfer of Care Handoff Completed per policy Notes Mental Status: alert / awake / arousable Patient Amnestic to Procedure: Yes Nausea / Vomiting: adequately controlled Pain: adequately controlled Airway Patency, RR, SpO2: stable & adequate BP & HR: stable & adequate Hydration State: stable & adequate Anesthetic Complications: no major complications apparent
--- NOTE | 2019-08-20 14:48 | Operative Report (OR) ---
DATE OF OPERATION: 08/20/2019 PREOPERATIVE DIAGNOSES: Acute cholecystitis, cholelithiasis. POSTOPERATIVE DIAGNOSES: Acute cholecystitis with gangrene gallbladder, cholelithiasis. OPERATION: Laparoscopic cholecystectomy, ARTIS drainage x1. SURGEON: Sofia Byrne MD. CARRY ALL DRIVER: Valery King PA-C. ANESTHESIA: General. ESTIMATED BLOOD LOSS: About 30 mL. FINDINGS: Acute cholecystitis with gangrene gallbladder. COMPLICATIONS: None. INDICATIONS FOR THE PROCEDURE: This is a 69-year-old gentleman who was admitted to the hospital for right upper quadrant pain, and the patient had a CT scan and HIDA scan diagnosis of acute cholecystitis with gallstone, and I recommend to do the laparoscopic cholecystectomy, intraoperative cholangiogram, possible open. I did talk to the patient and patient's about the benefit, risk, alternate procedure. I indicated the risks may include but not limited to such as bleeding, infection, injury to common bile duct, myocardial infarction, may need an ERCP. The patient understands. He signed informed consent and I answered all questions. DETAILS OF PROCEDURE: We brought the patient to the OR, put the patient in the supine position. The patient received SCD on bilateral legs to prevent DVT. Also, patient received 3.375 grams of Zosyn IV for prophylactic antibiotic. The patient received general anesthesia without difficulty. The abdomen was prepped and draped in routine sterile fashion. After time-out, I injected local anesthesia by using 1% lidocaine mixed with 0.5% Marcaine just above the umbilicus. Then, I made a small incision just above the umbilicus, opened fascia and opened peritoneum under direct vision, put a Shyla trocar in, connected to CO2 to create pneumoperitoneum, flow rate is 6 liters per minute, pressure not more than 14 mmHg. Once we got a nice pneumoperitoneum, we put a camera in, looked around the abdomen, which showed normal finding on the liver. However, the gallbladder showed significant inflammation with gallbladder wall thickening, edema with gangrene gallbladder. So, we once confirmed the diagnosis of acute gangrene gallbladder, we put another two 5 mm trocars on the right upper quadrant, one 11 trocar on the epigastric area. Once all trocars in, because of the gallbladder with significant distention, I had to use a large needle to decompress the gallbladder first. Then, we used a grasper to hold the base of gallbladder, put in the direction to the diaphragm, another grasper to hold the pouch of gallbladder, put a lateral to expose the triangle of Calot. Cystic duct was identified and mobilized. Then, we used 10 mm metal clips on the distal cystic duct and then we made a small incision by using a scissor on the cystic duct. Then we connected to the catheter and injected contrast through the cystic duct and then we took an x-ray and it looked like there was some contrast going to the small bowel and remains some in common bile duct and right and left side hepatic duct, could not see significant stone blockage in the common bile duct and once we finished the cholangiogram, we removed the catheter. We put two 10 mm metal clips x2 on the cystic duct. Then we completed the transection of the cystic duct. Rechecked, no active bleeding, no bile leak from cystic duct. The cystic artery was identified and mobilized. I put two 5 mm metal clips on the proximal cystic artery, one on the distal cystic artery, then used the scissor for transection of cystic artery. Rechecked, no active bleeding. Then we used the Bovie to take down gallbladder from the liver bed and rechecked no active bleeding, no bile leak from the liver bed. Then we removed gallbladder through the catch bag. Then we reinserted Shyla trocar in, connected to CO2 to create pneumoperitoneum, again looked around. No active bleeding, no bile leak from the liver bed. However, based on significant gallbladder wall thickening, edema, gangrene gallbladder, I decided to put one 10 mm ARTIS drainage in and then we used 0 nylon to fix the ARTIS drainage on the skin. Then we removed all trocar under direct vision. No active bleeding from the trocar sites. Pneumoperitoneum was released and closed the umbilical fascial layer by using 0 Vicryl [id number] x2, closed subcutaneous layer by using 2-0 Vicryl interruptedly, closed skin by using 4-0 Vicryl continuous running, closed the epigastric area incision, fascial layer by using #1 Vicryl [id number] x2, subcutaneous layer by using 2-0 Vicryl interruptedly, closed skin by using 4-0 Vicryl interruptedly, closed another two 5 mm trocar site skin only by using 4-0 Vicryl, and we put the dressing on. The patient tolerated the procedure well. All instrument, needle and sponge count were correct x2 at the end of the case. The patient was transferred to recovery room in stable condition. The specimen was sent to pathology. After the procedure, I did talk to the patient's about the OR finding and the procedure we did, she understands. I attest to the content of the Intraoperative Record and any orders documented therein. Any exception s are noted below.
[2019-08-20] MEDS ORDERED: NITROGLYCERIN SL 0.4 MG/TAB TAB SL PRN (15:39)
[2019-08-20] MEDS ORDERED: ACETAMINOPHEN 325 MG TAB PO PRN (15:39)
[2019-08-20] MEDS: PANTOprazole 40 MG TAB PO SCH (16:16)
[2019-08-20] MEDS: PIPERACILLIN/TAZOBACTAM 3.375 GM in DEXTROSE 5% 100 ML IV SCH ×2 (16:16→21:45)
[2019-08-20] MEDS ORDERED: POLYETHYLENE (MIRALAX) 17 GM PACK PO PRN (16:29)
[2019-08-20] MEDS: FUROSEMIDE 20 MG TAB PO SCH (17:38)
[2019-08-20] MEDS: lisinopriL 10 MG TAB PO SCH (17:39)
[2019-08-21] MEDS: PIPERACILLIN/TAZOBACTAM 3.375 GM in DEXTROSE 5% 100 ML IV SCH ×3 (05:35→21:47)
[2019-08-21 06:29] LABS: Eosinophils # (auto) 0.01 K/uL (0-0.5); Eosinophils % (auto) 0.1 %; Hematocrit (blood only) 36.8 % (42-52); Hemoglobin 11.8 g/dL (14.0-18.0); Immature Granulocytes # (auto) 0.11 K/uL (0.00-0.02); Immature Granulocytes % (auto) 0.6 %; Lymphocytes % (auto) 4.7 %; Mean Corpuscular Hemoglobin 30.3 pg (25-34); Mean Corpuscular Hgb Conc 32.1 g/dL (32-36); Mean Corpuscular Volume 94.4 fL (80-100); Mean Platelet Volume 8.8 fL (7.4-10.4); Monocytes # (auto) 0.69 K/uL (0.11-0.59); Monocytes % (auto) 4.1 %; Neutrophils # (auto) 15.35 K/uL (1.4-6.5); Neutrophils % (auto) 90.5 %; Platelet Count 269 K/uL (130-400); RDW Coefficient of Variation 13.2 % (11.5-14.5); RDW Standard Deviation 45.5 fL (36.4-46.3); White Blood Count 16.96 K/uL (4.8-10.8)
[2019-08-21 07:11] LABS: BUN Creatinine Ratio 19.7 (10-20); Calcium 8.5 mg/dl (8.5-10.1); Creatinine Clr Calc Pharmacy 86.2 ml/min; Est GFR (African American) 100.6; Est GFR (Non-African American) 86.8; Potassium 4.1 mmol/L (3.5-5.1)
[2019-08-21 07:15] LABS: Albumin Globulin Ratio 0.5 (0.9-2); Bilirubin,Total 0.6 mg/dl (0.2-1); Globulin 4.3 gm/dl (2.5-4.0); Total Protein 6.3 gm/dl (6.4-8.2)
--- NOTE | 2019-08-21 08:33 | Hospitalist Progress Note ---
Date of Service August 21, 2019 Assessment & Plan (1) Cholelithiasis: s/p cholecystectomy for Acute cholecystitis with gangrene gallbladder, cholelithiasis with cystic duct obstruction fevers -This is a 69 year old male with right upper quadrant abdominal pain that started around 11PM on 08/17/2019. He reported a dinner meal of tacos. Patient denies vomiting or changes in bowel movements or fevers. He has history of myocardial infraction in 2015 and has been on dual antiplatelets or aspirin daily and plavix daily since that time. He denies chest pain or shortness of breath, no dizziness or lightheadedness. On ED presentation on 08/18/2019, his CT abdomen imaging "Cholelithiasis with trace pericholecystic fluid and equivocal increased gallbladder luminal pressure. Clinical correlation in regards to acute cholecystitis is recommended. If deemed clinically appropriate, a nuclear medicine hepatic biliary study could be obtained in follow-up" -ED provider reports that they discussed with general surgery who agreed with radiology impression to get HIDA scan in case of acute cholecystitis . patient started on ceftriaxone 2000 grams empirically by ED provider in case of acute cholecystitis -Family history of mother with gallbladder removed and father with diabetes -HIDA scan on 08/19/2019: Nonvisualization of the gallbladder. Given the clinical presentation and CT findings, this implies cystic duct obstruction. -08/19/2019: Gastroenterology service reports that ERCP cannot reach cystic duct and likely will need cholecystectomy and possible intraoperative cholangiogram, general surgery had plans for going to the operating room on 08/20/2019, patient clinically not in distress but WBC elevated as 13,000 by 08/19/2019 was continued the ceftriaxone antibiotics for now -08/20/2019: patient had fever of 38.7 C, hospitalist assessed patient - he is not in distress and reports abdominal pain has been unchanged. blood cultures obtained and antibiotics from ceftriaxone to Zosyn q8 hours and patient received IV. patient then went to operating room and s/p cholecystectomy for Acute cholecystitis with gangrene gallbladder, cholelithiasis 08/21/2019: advance the diet from liquids to low fat diet, WBC 16 K, continue IV Zosyn, general surgery to manage the ARTIS drain History of myocardial infarction in the past paroxysmal atrial fibrillation -He has history of myocardial infraction in 2014 and has been on dual antiplate lets or aspirin daily and plavix daily since that time -[facility] cardiology notes documented episode of atrial fibrillation after myocardial infarction in the past, appears to be generally sinus rhythm, questionable atrial fibrillation on admission EKG, EKG of sinus rhythm on 08/19/2019 -he took morning medications prior to arriving to ED, and then home medications were held of the aspirin and plavix to prevent bleed risks from surgery, and statin because of interrupted oral intake, and holding the furosemide and holding the lisinopril for now -[facility] cardiology would wish aspirin to be resumed as soon as possible but patient went operating room on 08/20/2019 and general surgery had requested previously prior to surgery to hold off medication that can increase bleed risk -continue home metoprolol -[facility] notes that patient has CHADSVASc score of at least 2, and long-term anticoagulation therapy is therefore indicated for thromboembolic prophylaxis. Recommend utilizing a novel anticoagulant such as Eliquis. This can be initiated following surgery, once safe from a bleeding standpoint. His Plavix therapy can then be discontinued, and he can remain on low dose aspirin therapy. -for now, hospitalist will continue as aspirin and plavix post-operatively and once the ARTIS drain is removed, then can consider transitioning Plavix to Eliquis while maintaining the aspriin daily GERD (gastroespohageal reflux disease) -continue home dose pantoprazole DVT prophylaxis: SCDs for now Full Code Status [id number] Admission and Anticipated Discharge Date Admission Date: August 18, 2019 Subjective ARTIS drain with serosanguinous fluid. no nausea. no acute abdomen pain. no vomiting. patient had tolerated the liquid diet. no chest pain. no palpitations. no dizziness. no headache. Review of Systems Review of Systems: All systems reviewed & are unremarkable except as noted in Subjective Physical Exam Constitutional: + obese Eyes: PERRL, conjunctivae normal, anicteric sclerae EOM intact bilaterally ENMT: external ear and nose normal, oropharynx normal Neck: trachea midline, no thyromegaly normal visual inspection Respiratory: normal respiratory effort, lungs clear to auscultation Cardiovascular: Rate/Rhythm: regular rate Gastrointestinal (Abdomen): Inspection/Auscultation: normal bowel sounds Percussion/Palpation: abdomen soft ARTIS drain from cholecystectomy surgical site Musculoskeletal: Head/Neck/Chest: normocephalic and head atraumatic Neurologic: PERRL, EOMI, accommodation nl, no face palsy, no dysarthria CN's II-XI intact bilaterally Psychiatric: A+Ox3, euthymic affect Results & Data Results & Data ([facility]) Vital Signs (Past 12 Hours) Vital Signs Temp Pulse Resp BP BP Pulse Ox 08/21/19 06:55 36.6 C 82 20 101/63 94 08/20/19 23:15 36.7 C 87 18 105/68 95
[2019-08-21] MEDS ORDERED: CLOPIDOGREL BISULFATE 75 MG TAB PO SCH (09:00)
[2019-08-21] MEDS ORDERED: ASPIRIN 81 MG ECTAB PO SCH (09:00)
[2019-08-21] MEDS: lisinopriL 10 MG TAB PO SCH (09:02)
[2019-08-21] MEDS: FUROSEMIDE 20 MG TAB PO SCH (09:02)
[2019-08-21] MEDS: ASPIRIN 81 MG ECTAB PO SCH (09:02)
[2019-08-21] MEDS: ATORVASTATIN 40 MG TAB PO SCH (09:03)
[2019-08-21] MEDS: SENNA 8.6 MG TAB PO SCH (09:04)
--- NOTE | 2019-08-21 10:01 | Surgery Progress Note ---
Date of Service August 21, 2019 Assessment & Plan (1) Cholecystitis: POD#1 laparoscopic cholecystectomy WBC downtrending, 16.9 from 18.9 yesterday. Tbili :0.6 from 1.2 patient overall feels well tolerating a regular diet pt denies much pain ARTIS serosang. will keep admitted today and continue IV zosyn for gangrenous gallbladder Subjective Patient says he feels good. Tolerating a diet without nausea/vomiting. Pain is minimal. Physical Exam Physical Exam: awake/alert, sitting up in chair Respiratory: normal respiratory effort Gastrointestinal (Abdomen): Inspection/Auscultation: + abdominal surgical incision (surgical bandages in place, c/d/i) and + abdominal surgical drain present (serosangenious ) Percussion/Palpation: abdomen soft; abdomen nontender Results & Data Vital Signs (Past 12 Hours) Vital Signs Temp Pulse Resp BP BP Pulse Ox 08/21/19 06:55 36.6 C 82 20 101/63 94 08/20/19 23:15 36.7 C 87 18 105/68 95 PG Care Time/CCT Total # of Minutes Spent Total Time Spent with Patient: Total time spent is greater than 50% in coordination of care (as documented) at patient's floor/unit and/or counseling patient: Coding Level of Care Code 62807 Subseq Hosp Care Lvl 1 Diagnoses Cholecystitis K81.9
[2019-08-21] MEDS: METOPROLOL SUCC 50MG EXT REL TAB PO SCH (10:57)
[2019-08-21] MEDS: CLOPIDOGREL BISULFATE 75 MG TAB PO SCH (10:59)
[2019-08-21] MEDS: PANTOprazole 40 MG TAB PO SCH (11:00)
[2019-08-22] MEDS: PIPERACILLIN/TAZOBACTAM 3.375 GM in DEXTROSE 5% 100 ML IV SCH (05:14)
[2019-08-22 07:12] LABS: Basophils # (auto) 0.01 K/uL (0-0.2); Basophils % (auto) 0.1 %; Eosinophils % (auto) 1.2 %; Hematocrit (blood only) 38.9 % (42-52); Hemoglobin 13.2 g/dL (14.0-18.0); Immature Granulocytes # (auto) 0.09 K/uL (0.00-0.02); Immature Granulocytes % (auto) 1.1 %; Lymphocytes # (auto) 1.37 K/uL (1.2-3.4); Lymphocytes % (auto) 16.8 %; Mean Corpuscular Hemoglobin 31.7 pg (25-34); Mean Corpuscular Hgb Conc 33.9 g/dL (32-36); Mean Corpuscular Volume 93.3 fL (80-100); Mean Platelet Volume 8.6 fL (7.4-10.4); Monocytes # (auto) 0.46 K/uL (0.11-0.59); Monocytes % (auto) 5.6 %; Neutrophils # (auto) 6.13 K/uL (1.4-6.5); Neutrophils % (auto) 75.2 %; Platelet Count 282 K/uL (130-400); RDW Coefficient of Variation 13.1 % (11.5-14.5); RDW Standard Deviation 44.6 fL (36.4-46.3); Red Blood Count 4.17 M/uL (4.7-6.1); White Blood Count 8.16 K/uL (4.8-10.8)
[2019-08-22 07:43] LABS: BUN Creatinine Ratio 21.3 (10-20); Creatinine Clr Calc Pharmacy 79.9 ml/min; Est GFR (African American) 91.9; Est GFR (Non-African American) 79.3; Potassium 4.1 mmol/L (3.5-5.1)
--- NOTE | 2019-08-22 08:52 | Surgery Progress Note ---
Date of Service August 22, 2019 Assessment & Plan (1) Cholecystitis: POD 2 lap rona ok for d/c on abx with drain can resume Plavix Subjective tolerating diet, no analgesics Physical Exam Gastrointestinal (Abdomen): Inspection/Auscultation: + abdominal surgical drain present (10 cc) Percussion/Palpation: abdomen soft Results & Data Vital Signs (Past 12 Hours) Vital Signs Temp Pulse Resp BP BP Pulse Ox 08/22/19 07:02 36.4 C L 84 18 127/83 95 08/21/19 23:02 36.6 C 88 16 131/87 95 PG Care Time/CCT Total # of Minutes Spent Total Time Spent with Patient: Total time spent is greater than 50% in coordination of care (as documented) at patient's floor/unit and/or counseling patient: Coding Level of Care Code 45262 Subseq Hosp Care Lvl 1 Diagnoses Cholecystitis K81.9
[2019-08-22] MEDS: METOPROLOL SUCC 50MG EXT REL TAB PO SCH (09:07)
[2019-08-22] MEDS: PANTOprazole 40 MG TAB PO SCH (09:07)
[2019-08-22] MEDS: ATORVASTATIN 40 MG TAB PO SCH (09:07)
[2019-08-22] MEDS: ASPIRIN 81 MG ECTAB PO SCH (09:07)
[2019-08-22] MEDS: SENNA 8.6 MG TAB PO SCH (09:07)
[2019-08-22] MEDS: CLOPIDOGREL BISULFATE 75 MG TAB PO SCH (09:08)
[2019-08-22] MEDS: FUROSEMIDE 20 MG TAB PO SCH (09:08)
[2019-08-22] MEDS: lisinopriL 10 MG TAB PO SCH (09:08)
--- NOTE | 2019-08-22 10:59 | Hospitalist Progress Note ---
Date of Service August 22, 2019 Assessment & Plan (1) Cholelithiasis: s/p cholecystectomy for Acute cholecystitis with gangrene gallbladder, cholelithiasis with cystic duct obstruction fevers -This is a 69 year old male with right upper quadrant abdominal pain that started around 11PM on 08/17/2019. He reported a dinner meal of tacos. Patient denies vomiting or changes in bowel movements or fevers. He has history of myocardial infraction in 2015 and has been on dual antiplatelets or aspirin daily and plavix daily since that time. He denies chest pain or shortness of breath, no dizziness or lightheadedness. On ED presentation on 08/18/2019, his CT abdomen imaging "Cholelithiasis with trace pericholecystic fluid and equivocal increased gallbladder luminal pressure. Clinical correlation in regards to acute cholecystitis is recommended. If deemed clinically appropriate, a nuclear medicine hepatic biliary study could be obtained in follow-up" -ED provider reports that they discussed with general surgery who agreed with radiology impression to get HIDA scan in case of acute cholecystitis . patient started on ceftriaxone 2000 grams empirically by ED provider in case of acute cholecystitis -Family history of mother with gallbladder removed and father with diabetes -HIDA scan on 08/19/2019: Nonvisualization of the gallbladder. Given the clinical presentation and CT findings, this implies cystic duct obstruction. -08/19/2019: Gastroenterology service reports that ERCP cannot reach cystic duct and likely will need cholecystectomy and possible intraoperative cholangiogram, general surgery had plans for going to the operating room on 08/20/2019, patient clinically not in distress but WBC elevated as 13,000 by 08/19/2019 was continued the ceftriaxone antibiotics for now -08/20/2019: patient had fever of 38.7 C, hospitalist assessed patient - he is not in distress and reports abdominal pain has been unchanged. blood cultures obtained and antibiotics from ceftriaxone to Zosyn q8 hours and patient received IV. patient then went to operating room and s/p cholecystectomy for Acute cholecystitis with gangrene gallbladder, cholelithiasis -08/21/2019: advance the diet from liquids to low fat diet, WBC 16 K, continue IV Zosyn, general surgery to manage the ARTIS drain -08/22/2019: Patient ambulatory and patient continues to have ARTIS drain. WBC normalized and general surgery allows for discharge with ARTIS drain. History of myocardial infarction in the past paroxysmal atrial fibrillation -He has history of myocardial infraction in 2015 and has been on dual antiplatelets or aspirin daily and plavix daily since that time -[facility] notes documented episode of atrial fibrillation after myocardial infarction in the past, appears to be generally sinus rhythm, questionable atrial fibrillation on admission EKG, EKG of sinus rhythm on 08/19/2019 -he took morning medications prior to arriving to ED, and then home medications were held of the aspirin and plavix to prevent bleed risks from surgery, and statin because of interrupted oral intake, and holding the furosemide and holding the lisinopril for now -[facility] would wish aspirin to be resumed as soon as possible but patient went operating room on 08/20/2019 and general surgery had requested previously prior to surgery to hold off medication that can increase bleed risk -continue home metoprolol -[facility] notes that patient has CHADSVASc score of at least 2, and long-term anticoagulation therapy is therefore indicated for thromboembolic prophylaxis. Recommend utilizing a novel anticoagulant such as Eliquis. This can be initiated following surgery, once safe from a bleeding standpoint. His Plavix therapy can then be discontinued, and he can remain on low dose aspirin therapy. -discharge EKG shows rate controlled heart rate with atrial fibrillation -for now, hospitalist will continue as aspirin 81 mg daily and plavix (clopidogrel) 75 mg daily post-operatively and once the ARTIS drain is removed as by general surgery clinic, then patient can continue the aspirin 81 mg daily but replace the plavix (clopidogrel) with Eliquis (apixaban) 5 mg twice a day while maintaining the aspirin daily. Patient has received the paper prescription of Eliquis (apixaban) from hospital doctor -patient should take the Augmentin antibiotic twice a day as prescribed by general surgery team -other appointments besides general surgery clinic on Friday08/25/[address] Byrne. Office phone number 08/27/2019 8:00 AM Provider Desean Leyva MD Department Family Practice [facility] 09/07/2019 9:00 AM Provider Nurse Annual Wellness [facility] Department Ancillary [facility] patient should also make follow up appointment with [facility] Cardiology clinic GERD (gastroespohageal reflux disease) -continue home dose pantoprazole DVT prophylaxis: SCDs for now Full Code Status [id number] Admission and Anticipated Discharge Date Admission Date: August 18, 2019 Subjective Patient ambulatory and patient continues to have ARTIS drain. WBC normalized and general surgery allows for discharge with ARTIS drain. no abdominal pain, no nausea, no vomiting, no dizziness, no headache, no chest pain, no shortness of breath, on room air Review of Systems Review of Systems: All systems reviewed & are unremarkable except as noted in Subjective Physical Exam Constitutional: + obese Eyes: PERRL, conjunctivae normal, anicteric sclerae EOM intact bilaterally ENMT: external ear and nose normal, oropharynx normal Neck: trachea midline, no thyromegaly normal visual inspection Respiratory: normal respiratory effort, lungs clear to auscultation Cardiovascular: Rate/Rhythm: regular rate and + irregularly irregular Gastrointestinal (Abdomen): Inspection/Auscultation: normal bowel sounds Percussion/Palpation: abdomen soft (present of ARTIS drain) Musculoskeletal: Head/Neck/Chest: normocephalic and head atraumatic Neurologic: PERRL, EOMI, accommodation nl, no face palsy, no dysarthria CN's II-XI intact bilaterally Psychiatric: A+Ox3, euthymic affect Results & Data Results & Data ([facility]) Vital Signs (Past 12 Hours) Vital Signs Temp Pulse Resp BP BP Pulse Ox 08/22/19 07:02 36.4 C L 84 18 127/83 95 08/21/19 23:02 36.6 C 88 16 131/87 95
--- NOTE | 2019-08-22 11:06 | Discharge Summary ---
Date of Service August 22, 2019 Admission HPI Per Admitting Provider -This is a 69 year old male with right upper quadrant abdominal pain that started around 11PM on 08/17/2019. He reported a dinner meal of tacos. Patient denies vomiting or changes in bowel movements or fevers. He has history of myocardial infraction in 2014 and has been on dual antiplatelets or aspirin daily and plavix daily since that time. He denies chest pain or shortness of breath, no dizziness or lightheadedness. On ED presentation on 08/18/2019, his CT abdomen imaging "Cholelithiasis with trace pericholecystic fluid and equivocal increased gallbladder luminal pressure. Clinical correlation in regards to acute c holecystitis is recommended. If deemed clinically appropriate, a nuclear medicine hepatic biliary study could be obtained in follow-up" -ED provider reports that they discussed with general surgery who agreed with radiology impression to get HIDA scan in case of acute cholecystitis . patient started on ceftriaxone 2000 grams empirically by ED provider in case of acute cholecystitis -Family history of mother with gallbladder removed and father with diabetes Principal Diagnosis s/p cholecystectomy for Acute cholecystitis with gangrene gallbladder, cholelithiasis with cystic duct obstruction fevers paroxysmal atrial fibrillation History of myocardial infarction in the past Discharge Exam Constitutional + obese Eyes PERRL, conjunctivae normal, anicteric sclerae EOM intact bilaterally ENMT external ear and nose normal, oropharynx normal Neck trachea midline, no thyromegaly normal visual inspection Respiratory normal respiratory effort, lungs clear to auscultation Cardiovascular Rate/Rhythm: regular rate and + irregularly irregular Gastrointestinal (Abdomen) Inspection/Auscultation: normal bowel sounds Percussion/Palpation: abdomen soft (present of ARTIS drain) Musculoskeletal Head/Neck/Chest: normocephalic and head atraumatic Neurologic PERRL, EOMI, accommodation nl, no face palsy, no dysarthria CN's II-XI intact bilaterally Psychiatric A+Ox3, euthymic affect Discharge Data Allergies Allergy/AdvReac Type Severity Reaction Status Date / Time No Known Allergies Allergy Unverified 07/15/19 13:47 Consultations 08/18/19 11:11 Consult Case Management - Discharge Planning Routine 08/18/19 14:10 Consult General Surgery Routine 08/18/19 16:18 Consult Anesthesiology Routine Consult Cardiology Routine 08/19/19 10:13 Consult Gastroenterology Routine Procedures Performed Operation Date: 08/20/19 12:35 Actual Procedures p Laparoscopic Cholecystectomy, Cholangiogram(Not Applicable) - Sofia Byrne MD Ordered Studies 08/18/19 08:41 CT abd pelvis IV con only Stat 08/20/19 12:35 [place] cholangiogram OR Routine Hospital Course (1) Cholelithiasis: s/p cholecystectomy for Acute cholecystitis with gangrene gallbladder, cholelithiasis with cystic duct obstruction fevers -This is a 69 year old male with right upper quadrant abdominal pain that started around 11PM on 08/17/2019. He reported a dinner meal of tacos. Patient denies vomiting or changes in bowel movements or fevers. He has history of myocardial infraction in 2015 and has been on dual antiplatelets or aspirin daily and plavix daily since that time. He denies chest pain or shortness of breath, no dizziness or lightheadedness. On ED presentation on 08/18/2019, his CT abdomen imaging "Cholelithiasis with trace pericholecystic fluid and equivocal increased gallbladder luminal pressure. Clinical correlation in regards to acute cholecystitis is recommended. If deemed clinically appropriate, a nuclear medicine hepatic biliary study could be obtained in follow-up" -ED provider reports that they discussed with general surgery who agreed with radiology impression to get HIDA scan in case of acute cholecystitis . patient started on ceftriaxone 2000 grams empirically by ED provider in case of acute cholecystitis -Family history of mother with gallbladder removed and father with diabetes -HIDA scan on 08/19/2019: Nonvisualization of the gallbladder. Given the clinical presentation and CT findings, this implies cystic duct obstruction. -08/19/2019: Gastroenterology service reports that ERCP cannot reach cystic duct and likely will need cholecystectomy and possible intraoperative cholangiogram, general surgery had plans for going to the operating room on 08/20/2019, patient clinically not in distress but WBC elevated as 13,000 by 08/19/2019 was continued the ceftriaxone antibiotics for now -08/20/2019: patient had fever of 38.7 C, hospitalist assessed patient - he is not in distress and reports abdominal pain has been unchanged. blood cultures obtained and antibiotics from ceftriaxone to Zosyn q8 hours and patient received IV. patient then went to operating room and s/p cholecystectomy for Acute cholecystitis with gangrene gallbladder, cholelithiasis -08/21/2019: advance the diet from liquids to low fat diet, WBC 16 K, continue IV Zosyn, general surgery to manage the ARTIS drain -08/22/2019: Patient ambulatory and patient continues to have ARTIS drain. WBC normalized and general surgery allows for discharge with ARTIS drain. History of myocardial infarction in the past paroxysmal atrial fibrillation -He has history of myocardial infraction in 2015 and has been on dual antiplatelets or aspirin daily and plavix daily since that time -[facility] cardiology notes documented episode of atrial fibrillation after myocardial infarction in the past, appears to be generally sinus rhythm, questionable atrial fibrillation on admission EKG, EKG of sinus rhythm on 08/19/2019 -he took morning medications prior to arriving to ED, and then home medications were held of the aspirin and plavix to prevent bleed risks from surgery, and statin because of interrupted oral intake, and holding the furosemide and holding the lisinopril for now -[facility] cardiology would wish aspirin to be resumed as soon as possible but patient went operating room on 08/20/2019 and general surgery had requested previously prior to surgery to hold off medication that can increase bleed risk -continue home metoprolol -[facility] notes that patient has CHADSVASc score of at least 2, and long-term anticoagulation therapy is therefore indicated for thromboembolic prophylaxis. Recommend utilizing a novel anticoagulant such as Eliquis. This can be initiated following surgery, once safe from a bleeding standpoint. His Plavix therapy can then be discontinued, and he can remain on low dose aspirin therapy. -discharge EKG shows rate controlled heart rate with atrial fibrillation -for now, hospitalist will continue as aspirin 81 mg daily and plavix (clopidogrel) 75 mg daily post-operatively and once the ARTIS drain is removed as by general surgery clinic, then patient can continue the aspirin 81 mg daily but replace the plavix (clopidogrel) with Eliquis (apixaban) 5 mg twice a day while maintaining the aspirin daily. Patient has received the paper prescription of Eliquis (apixaban) from hospital doctor -patient should take the Augmentin antibiotic twice a day as prescribed by general surgery team -other appointments besides general surgery clinic on Friday08/25/[address] Byrne. Office phone number 08/27/2019 8:00 AM Provider Desean Leyva MD [facility] 09/07/2019 9:00 AM Provider Nurse Annual Wellness [facility] Department Ancillary [facility] patient should also make follow up appointment with [facility] Cardiology clinic GERD (gastroespohageal reflux disease) -continue home dose pantoprazole DVT prophylaxis: SCDs for now Full Code Status [id number] Total Time Total Time Spent Total Time Spent (In Minutes): 40 minutes Total Time Includes: Examination of the Patient, Discharge Planning, Medication Reconciliation and Communication With Other Providers Discharge Plan Discharge Items Patient Disposition: Home - Self-Care Reason For Visit: GALLSTONES, POSSIBLE CHOLECYSTITIS Discharge Diagnosis: s/p cholecystectomy for Acute cholecystitis with gangrene gallbladder, cholelithiasis with cystic duct obstruction fevers paroxysmal atrial fibrillation History of myocardial infarction in the past Condition on Discharge: Good Activity: Per Instructions section Non-emergency contact: Primary Care Provider, Surgeon and Deliverer Merchandise Call non-emergency contact if: you have any medication questions Follow-up/Referrals: Desean Leyva MD [Primary Care Provider] - Diet: Low Fat Addtl Attending Provider Instructions: Post-Surgical ~Discharge Instructions Activity Recommendations: - lifting limitation: (25 pounds for 3-4 weeks), - exercise/sex/sports limit: (nonstrenuous for 2 weeks), - driving or machine use limit: (none for 1 week or until pain free), - Shower/bathe limit: (may shower) Diet: - Resume previous diet SPECIAL CARE INSTRUCTIONS: - May shower. Let water run over area and pat dry. Sponge bath around drain site - Leave steri strips on for one week and then remove - Record output of drain and color and bring with you to your post-op visit. Drain will be removed in office. - Call the surgeon's office with any questions or concerns - - (ex. temperature higher than 101 degrees F, excessive bleeding or pain). MEDICATIONS: - Resume previous medications unless instructed otherwise by your surgeon. - You can alternate extra strength Tylenol and Ibuprofen as needed for mild pain -Tylenol 650 mg every 6 hours as needed - Ibuprofen 600 mg every 6 hours as needed, take with food - Percocet 1 every 4 hours, as needed for pain FOLLOW UP VISIT: - please call the office to schedule a post-op follow-up appointment with Dr. Byrne on Friday08/25/2019. Office number [facility] Acquisition Consultant Provider Instructions: -[facility] cardiology notes that patient has CHADSVASc score of at least 2, and long-term anticoagulation therapy is therefore indicated for thromboembolic prophylaxis. Recommend utilizing a novel anticoagulant such as Eliquis. This can be initiated following surgery, once safe from a bleeding standpoint. His Plavix therapy can then be discontinued, and he can remain on low dose aspirin therapy. -discharge EKG shows rate controlled heart rate with atrial fibrillation -for now, hospitalist will continue as aspirin 81 mg daily and plavix (clopidogrel) 75 mg daily post-operatively and once the ARTIS drain is removed as by general surgery clinic, then patient can continue the aspirin 81 mg daily but replace the plavix (clopidogrel) with Eliquis (apixaban) 5 mg twice a day while maintaining the aspirin daily. Patient has received the paper prescription of Eliquis (apixaban) from hospital doctor -patient should take the Augmentin antibiotic twice a day as prescribed by general surgery team -other appointments besides general surgery clinic on Friday08/25/[address] Byrne. Office phone number 08/27/2019 8:00 AM Provider Desean Leyva MD Department Family Practice [facility] 09/07/2019 9:00 AM Provider Nurse Annual Wellness [facility] Department Ancillary [facility] patient should also make follow up appointment with [facility] Cardiology clinic Pending Studies at Discharge: No Stand-Alone Forms: My [facility], Smoking Cessation Medications and DC Order Prescriptions: New amoxicillin-pot clavulanate [Augmentin] 875-125 mg tablet 1 tab PO BID 5 Days Qty: 10 RF: 0 acetaminophen 325 mg Tablet 650 mg PO Q6H PRN (Reason: fever or pain) 5 Days Qty: 20 RF: 0 Continued nitroglycerin 0.4 mg tablet, sublingual 0.4 mg SL Q5M PRN (Reason: chest pain) Qty: 25 RF: 3 clopidogrel 75 mg tablet 75 mg PO DAILY Qty: 90 RF: 3 furosemide 20 mg tablet 20 mg PO DAILY Qty: 90 RF: 3 lisinopril 10 mg tablet 10 mg PO DAILY Qty: 90 RF: 3 metoprolol succinate 50 mg tablet extended release 24 hr 50 mg PO DAILY Qty: 30 RF: 3 atorvastatin 80 mg tablet 80 mg PO DAILY Qty: 30 RF: 0 pantoprazole 40 mg tablet,delayed release (DR/EC) 40 mg PO DAILY Qty: 90 RF: 0 aspirin [Aspirin Low Dose] 81 mg Tablet,Delayed Release (Dr/Ec) 81 mg PO DAILY RF: 0 Discharge Orders: Discharge Order (Routine); Ordered 08/22/19 Ordered By: Manolo Newman Admission Data Admit Date/Time: 08/18/19 11:08 Attending Provider: Manolo Newman Admit Provider: Manolo Newman Primary Care Provider: Desean Leyva Other Providers: Sofia Byrne ; Glenn Woodward ; Jeremy Figueroa ; Symone Jenkins
--- NOTE | 2019-08-23 14:33 | Electrocardiogram Report ---
Test Reason : Blood Pressure : / mmHG Vent. Rate : 082 BPM Atrial Rate : 258 BPM P-R Int : 000 ms QRS Dur : 084 ms QT Int : 364 ms P-R-T Axes : 000 -18 120 degrees QTc Int : 425 ms Atrial fibrillation Inferior infarct (cited on or before 07-JAN-2015) Abnormal ECG When compared with ECG of 19-AUG-2019 10:13, Atrial fibrillation has replaced Sinus rhythm T wave inversion no longer evident in Lateral leads Confirmed by Alejandro Puri ([id number]) on 08/23/2019 2:33:07 PM Referred By: REFERRED SELF Confirmed By:Michael Puri
--- NOTE | 2019-08-31 12:56 | Coding Query ---
CONGESTIVE HEART FAILURE To Promote full compliance with coding requirements relating to patient care, physician participation is requested in all cases of quality control engineering technician uncertainty. Please assist us with the following questions. A diagnosis of Heart Failure is documented in the patient's medical record under history. To accurately code this diagnosis and to compare patient severity, we ask that you specify the type of heart failure by placing an X within the parenthesis (x). History of: ( ) SYSTOLIC HEART FAILURE ( ) Acute ( ) Chronic ( ) Acute on Chronic ( ) Rheumatic ( ) Unknown ( ) DIASTOLIC HEART FAILURE ( ) Acute ( ) Chronic ( ) Acute on Chronic ( ) Rheumatic ( ) Unknown ( ) COMBINED SYSTOLIC AND DIASTOLIC HEART FAILURE ( ) Acute ( ) Chronic ( ) Acute on Chronic ( ) Rheumatic ( ) Unknown ( ) OTHER HEART FAILURE. Please Specify ( ) NO HEART FAILURE I have not diagnosed this patient with CHF. Please discuss with his primary providers if you have questions. Thank you Mirta GAO
--- NOTE | 2019-09-06 06:23 | Coding Query ---
HEART FAILURE To Promote full compliance with coding requirements relating to patient care, physician participation is requested in all cases of injection specialist uncertainty. Please assist us with the following questions. A diagnosis of Heart Failure is documented in the patient's medical record under history. Dr. Figueroa was first queried and had responded by saying, "I have not diagnosed this patient with CHF. Please discuss with his primary providers if you have questions.". To accurately code this diagnosis and to compare patient severity, we ask that you specify the type of heart failure by placing an X within the parenthesis (x). History of: ( ) SYSTOLIC HEART FAILURE ( ) Acute ( ) Chronic ( ) Acute on Chronic ( ) Rheumatic ( ) Unknown ( ) DIASTOLIC HEART FAILURE ( ) Acute ( ) Chronic ( ) Acute on Chronic ( ) Rheumatic ( ) Unknown ( ) COMBINED SYSTOLIC AND DIASTOLIC HEART FAILURE ( ) Acute ( ) Chronic ( ) Acute on Chronic ( ) Rheumatic ( ) Unknown ( ) OTHER HEART FAILURE. Please Specify ( x ) NO HEART FAILURE: defer to cardiology diagnosis of no CHF Thank you Mirta GAO
== END 2019-08-22 13:15 | disposition home or self-care (01) | DRG 419 ==
LOC: ED 08:05 → 3W 11:08